=== PATIENT | male | born 1975 | race Caucasian/White ===

== ENCOUNTER → 2016-09-03 | Outpatient (CLI) | payer MEDICAID ==
[2016-09-03 14:27] LABS: ABSOLUTE EOSINOPHILS # (AUTO) 0.1 10^3/uL (0.0-0.6); ABSOLUTE LYMPHOCYTES (AUTO) 1.1 10^3/uL (0.5-4.7); ABSOLUTE MONOCYTES (AUTO) 0.5 10^3/uL (0.1-1.4); ABSOLUTE NEUT (AUTO) 1.9 10^3/uL (1.7-8.2); BASOPHILS % (AUTO) 0.4 % (0-2); EOSINOPHILS % (AUTO) 2.2 % (0-6); HEMATOCRIT 41.7 % (37.9-51.0); HEMOGLOBIN 13.4 g/dL (13.5-17.0); HGB HCT DIFFERENCE -1.5; LYMPHOCYTES % (AUTO) 29.8 % (13-45); MEAN CORPUSCULAR HGB CONC 32.2 g/dL (32.0-36.0); MEAN CORPUSCULAR VOLUME 90 fl (80-97); MONOCYTES % (AUTO) 15.4 % (3-13); RED BLOOD COUNT 4.63 10^6/uL (4.35-5.55); RED CELL DISTRIBUTION WIDTH 14.1 % (11.5-14.0); SEGMENTED NEUTROPHILS % (AUTO) 52.2 % (42-78); WHITE BLOOD COUNT 3.6 10^3/uL (4.0-10.5)
[2016-09-03 14:50] LABS: ALANINE AMINOTRANSFERASE 34 U/L (21-72); ALBUMIN 3.4 g/dL (3.5-5.0); ALKALINE PHOSPHATASE 55 U/L (38-126); ANION GAP 14 (5-19); ASPARTATE AMINO TRANSFERASE 31 U/L (17-59); BILIRUBIN,TOTAL 0.5 mg/dL (0.2-1.3); BLOOD UREA NITROGEN 22 mg/dL (7-20); CALCIUM 9.2 mg/dL (8.4-10.2); CARBON DIOXIDE 27 mmol/L (22-30); CHLORIDE 95 mmol/L (98-107); CREATININE RESULT 1.35 mg/dL (0.52-1.25); GLUCOSE 169 mg/dL (75-110); LIPASE 202.1 U/L (23-300); POTASSIUM 4.5 mmol/L (3.6-5.0); SODIUM 136.1 mmol/L (137-145); TOTAL PROTEIN 6.5 g/dL (6.3-8.2)
== END ==
LOC: RAD 13:29
PROVIDERS: ATTEND Physician Assistant
DX: R10.30 Lower abdominal pain, unspecified (principal)
CPT/HCPCS: 36415; 74022; 80053; 83690; 85025

== ENCOUNTER → 2016-12-03 | Outpatient (CLI) | payer MEDICAID | LOC: OD 12:27 | PROVIDERS: ATTEND Physician Assistant | DX: M25.572 Pain in left ankle and joints of left foot (principal) ==

== ENCOUNTER 2017-01-20 11:28 | Observation (INO) | payer MEDICAID ==
[~2017-01-20 11:28] MED LIST: METOCLOPRAMIDE HCL INJ/PF 10 MG/2 ML SDV ONE; NEOSTIGMINE METHYLSULFATE 10 MG/10 ML VIAL ONE; ONDANSETRON HCL INJ/PF 4 MG/2 ML SDV ONE; ROCURONIUM BROMIDE INJ 50 MG/5 ML VIAL IV ONE; SUCCINYLCHOLINE CHLORIDE INJ 200 MG/10 ML VIAL ONE
[2017-01-20] MEDS ORDERED: OXYCODONE-ACETAMINOPHEN 5-325 MG TABLET PO ONE (12:01)
[2017-01-20] MEDS ORDERED: PROMETHAZINE HCL 25 MG TABLET PO ONE (12:01)
--- NOTE | 2017-01-20 12:05 | ER Document Report ---
ED Medical Screen (RME) - General Chief Complaint: Abdominal Pain Stated Complaint: ABDOMINAL PAIN Time Seen by Provider: 01/20/17 11:55 Notes: Patient has a painful umbilical hernia. He has had this hernia for several years. He has had some bad coughing since yesterday and the hernia has enlarged and become much more painful about 1030 this morning. No vomiting or diarrhea. Patient has an incarcerated umbilical hernia. I attempted to push it back in while the patient is in RME sitting in a wheelchair, but I think he needs to be recumbent to get this to be successful. TRAVEL OUTSIDE OF THE [place] IN LAST 30 DAYS: No - Related Data Allergies/Adverse Reactions: niacin [Niacin] Allergy (Verified 12/01/15 15:56) Past Medical History - Past Medical History Cardiac Medical History: Reports: Hx Congestive Heart Failure, Hx Hypercholesterolemia, Hx Hypertension Neurological Medical History: Reports: Hx Migraine Endocrine Medical History: Reports: Hx Diabetes Mellitus Type 2 Renal/ Medical History: Denies: Hx Peritoneal Dialysis Musculoskeltal Medical History: Reports Hx Arthritis, Reports Hx Muscle Weakness , Reports Hx Musculoskeletal Deformity, Reports Hx Musculoskeletal Trauma Psychiatric Medical History: Reports: Hx Depression Traumatic Medical History: Reports: Hx Fractures Past Surgical History: Reports: Hx Orthopedic Surgery - Immunizations Hx Diphtheria, Pertussis, Tetanus Vaccination: No Physical Exam - Vital signs Vitals: Temp Pulse Resp BP Pulse Ox 98.2 F 121 H 22 H 163/96 H 94 01/20/17 11:39 01/20/17 11:39 01/20/17 11:39 01/20/17 11:39 01/20/17 11:39 Course - Vital Signs Vital signs: Temp Pulse Resp BP Pulse Ox 98.2 F 121 H 22 H 163/96 H 94 01/20/17 11:39 01/20/17 11:39 01/20/17 11:39 01/20/17 11:39 01/20/17 11:39
[2017-01-20] MEDS ORDERED: MORPHINE SULFATE 10 MG/ML INJ IV ONE ×2 (12:30→15:15)
[2017-01-20] MEDS ORDERED: NORMAL SALINE 1000 ML 1,000 ML IV PRN ×2 (12:30→15:34)
--- NOTE | 2017-01-20 12:30 | ER Document Report ---
ED GI/ - General Chief Complaint: Abdominal Pain Stated Complaint: ABDOMINAL PAIN Time Seen by Provider: 01/20/17 11:55 Mode of Arrival: Ambulatory Information source: Patient TRAVEL OUTSIDE OF THE [place] IN LAST 30 DAYS: No - HPI Patient complains to provider of: Abdominal pain Onset: This morning Timing/Duration: Sudden Quality of pain: Pressure, Sharp Severity at maximum: Severe Severity in ED: Severe Pain Level: 4 Location: Other - umbilical Associated symptoms: Nausea Exacerbated by: Coughing Relieved by: Denies Similar symptoms previously: Yes Recently seen / treated by doctor: No Notes: 01/20/17 12:28 Patient is a 41-year-old male with a history of diabetes, hypertension and high cholesterol, who has a history of an umbilical hernia, this morning around 10: 30 AM he had a "coughing fit", he states he was holding his abdomen at the time because he knows of his hernia and felt the size of the hernia increase, he also has increased pain with nausea as well, patient's last meal was 745 this morning - Related Data Allergies/Adverse Reactions: losartan Allergy (Verified 01/20/17 14:12) niacin [Niacin] Allergy (Verified 12/01/15 15:56) Past Medical History - General Information source: Patient - Social History Smoking Status: Never Smoker Family History: Reviewed & Not Pertinent Patient has suicidal ideation: No Patient has homicidal ideation: No - Past Medical History Cardiac Medical History: Reports: Hx Congestive Heart Failure, Hx Hypercholesterolemia, Hx Hypertension Neurological Medical History: Reports: Hx Migraine Endocrine Medical History: Reports: Hx Diabetes Mellitus Type 2 Renal/ Medical History: Denies: Hx Peritoneal Dialysis Musculoskeltal Medical History: Reports Hx Arthritis, Reports Hx Muscle Weakness , Reports Hx Musculoskeletal Deformity, Reports Hx Musculoskeletal Trauma Psychiatric Medical History: Reports: Hx Depression Traumatic Medical History: Reports: Hx Fractures Past Surgical History: Reports: Hx Orthopedic Surgery - Immunizations Hx Diphtheria, Pertussis, Tetanus Vaccination: No Hx Pneumococcal Vaccination: 06/18/15 Review of Systems - Review of Systems Constitutional: No symptoms reported EENT: No symptoms reported Cardiovascular: No symptoms reported Respiratory: No symptoms reported Gastrointestinal: See HPI Genitourinary: No symptoms reported Male Genitourinary: No symptoms reported Musculoskeletal: No symptoms reported Skin: No symptoms reported Hematologic/Lymphatic: No symptoms reported Neurological/Psychological: No symptoms reported -: Yes All other systems reviewed and negative Physical Exam - Vital signs Vitals: Temp Pulse Resp BP Pulse Ox 98.2 F 121 H 22 H 163/96 H 94 01/20/17 11:39 01/20/17 11:39 01/20/17 11:39 01/20/17 11:39 01/20/17 11:39 Interpretation: Hypertensive, Tachycardic, Tachypneic - General General appearance: Appears well, Alert - HEENT Head: Normocephalic, Atraumatic Eyes: Normal Pupils: PERRL - Respiratory Respiratory status: No respiratory distress Chest status: Nontender Breath sounds: Normal Chest palpation: Normal - Cardiovascular Rhythm: Regular Heart sounds: Normal auscultation Murmur: No - Abdominal Inspection: Normal, Obese Bowel sounds: Normal Tenderness: Tender - tender to palpate near the umbilicus with firm swollen area consistent with incarcerated umbilical hernia Organomegaly: No organomegaly - Back Back: Normal, Nontender - Extremities General upper extremity: Normal inspection, Nontender, Normal color, Normal ROM , Normal temperature General lower extremity: Normal inspection, Nontender, Normal color, Normal ROM , Normal temperature, Normal weight bearing. No: Darryl's sign - Neurological Neuro grossly intact: Yes Cognition: Normal Orientation: AAOx4 Jaime Coma Scale Eye Opening: Spontaneous [place] Coma Scale Verbal: Oriented [place] Coma Scale Motor: Obeys Commands [place] Coma Scale Total: 15 Speech: Normal Motor strength normal: LUE, RUE, LLE, RLE Sensory: Normal - Psychological Associated symptoms: Normal affect, Normal mood - Skin Skin Temperature: Warm Skin Moisture: Dry Skin Color: Normal Course - Re-evaluation Re-evalutation: 01/20/17 12:30 a call was placed to the on-call surgeon, Dr. Holloway who is currently in the OR, information was given to the OR nurse regarding patient 01/20/17 15:35 Patient was seen and evaluated by Dr. Holloway who will admit for further evaluation and treatment - Vital Signs Vital signs: Temp Pulse Resp BP Pulse Ox 98.2 F 121 H 22 H 163/96 H 94 01/20/17 11:39 01/20/17 11:39 01/20/17 11:39 01/20/17 11:39 01/20/17 11:39 - Laboratory Result Diagrams: 01/20/17 12:57 01/20/17 14:14 Laboratory results interpreted by me: 01/20/17 01/20/17 12:57 14:14 RDW 14.5 H Glucose 111 H - Diagnostic Test Radiology reviewed: Image reviewed, Reports reviewed - EKG Interpretation by Me EKG shows normal: Sinus rhythm Rate: Tachycardia - Consults Dr Holloway Time consulted: 12:50 Reason for consultation: 01/20/17 12:50 Incarcerated umbilical hernia Consulted provider: will come to ER Discharge - Discharge Clinical Impression: Incarcerated umbilical hernia Condition: Stable Disposition: ADMITTED INPATIENT Admitting Provider: Surgicalist Unit Admitted: Surgical Floor Referrals: LELIA OSORIO PA [Primary Care Provider] - Follow up as needed
[2017-01-20 13:06] LABS: ABSOLUTE BASOPHILS # (AUTO) 0.1 10^3/uL (0.0-0.2); ABSOLUTE EOSINOPHILS # (AUTO) 0.2 10^3/uL (0.0-0.6); ABSOLUTE LYMPHOCYTES (AUTO) 1.6 10^3/uL (0.5-4.7); ABSOLUTE MONOCYTES (AUTO) 0.4 10^3/uL (0.1-1.4); BASOPHILS % (AUTO) 1.3 % (0-2); EOSINOPHILS % (AUTO) 4.5 % (0-6); HEMATOCRIT 40.8 % (37.9-51.0); HEMOGLOBIN 13.7 g/dL (13.5-17.0); HGB HCT DIFFERENCE 0.3; LYMPHOCYTES % (AUTO) 29.9 % (13-45); MEAN CORPUSCULAR HEMOGLOBIN 30.1 pg (27.0-33.4); MEAN CORPUSCULAR HGB CONC 33.5 g/dL (32.0-36.0); MEAN CORPUSCULAR VOLUME 90 fl (80-97); MONOCYTES % (AUTO) 7.2 % (3-13); RED BLOOD COUNT 4.54 10^6/uL (4.35-5.55); RED CELL DISTRIBUTION WIDTH 14.5 % (11.5-14.0); SEGMENTED NEUTROPHILS % (AUTO) 57.1 % (42-78); WHITE BLOOD COUNT 5.2 10^3/uL (4.0-10.5)
[2017-01-20] MEDS ORDERED: DIPHENHYDRAMINE HCL 50 MG/ML VIAL IV ONE (13:11)
[2017-01-20 13:13] LABS: PROTHROMBIN TIME 11.8 SEC (11.4-15.4)
[2017-01-20 13:14] LABS: PARTIAL THROMBOPLASTIN TIME 25.2 SEC (23.5-35.8)
--- NOTE | 2017-01-20 13:34 | RADIOLOGY REPORT (SQ) ---
EXAM DESCRIPTION: CHEST PA/LAT COMPLETED DATE/TIME: 01/20/2017 1:26 pm REASON FOR STUDY: cough COMPARISON: 09/30/2015 EXAM PARAMETERS: NUMBER OF VIEWS: two views TECHNIQUE: Digital Frontal and Lateral radiographic views of the chest acquired. RADIATION DOSE: NA LIMITATIONS: none FINDINGS: LUNGS AND PLEURA: No opacities, masses or pneumothorax. No pleural effusion. MEDIASTINUM AND HILAR STRUCTURES: No masses or contour abnormalities. HEART AND VASCULAR STRUCTURES: Heart normal size. No evidence for failure. BONES: No acute findings. HARDWARE: None in the chest. OTHER: No other significant finding. IMPRESSION: NO SIGNIFICANT RADIOGRAPHIC FINDING IN THE CHEST. TECHNICAL DOCUMENTATION: JOB ID: [id number] [employer]- All Rights Reserved
--- NOTE | 2017-01-20 14:31 | EKG REPORT ---
SEVERITY:- OTHERWISE NORMAL ECG - SINUS TACHYCARDIA BORDERLINE LEFT AXIS DEVIATION : Confirmed by: Misty Mcintosh 20-Jan-2017 14:30:15
[2017-01-20 14:56] LABS: ALANINE AMINOTRANSFERASE 46 U/L (21-72); ALBUMIN 3.8 g/dL (3.5-5.0); ALKALINE PHOSPHATASE 113 U/L (38-126); ANION GAP 12 (5-19); ASPARTATE AMINO TRANSFERASE 43 U/L (17-59); BILIRUBIN,DIRECT 0.3 mg/dL (0.0-0.4); BILIRUBIN,TOTAL 0.5 mg/dL (0.2-1.3); BLOOD UREA NITROGEN 11 mg/dL (7-20); CALCIUM 9.3 mg/dL (8.4-10.2); CARBON DIOXIDE 23 mmol/L (22-30); CHLORIDE 104 mmol/L (98-107); CREATININE RESULT 0.87 mg/dL (0.52-1.25); GLUCOSE 111 mg/dL (75-110); POTASSIUM 4.2 mmol/L (3.6-5.0); SODIUM 139.4 mmol/L (137-145)
--- NOTE | 2017-01-20 15:55 | PDOC H&P ---
History of Present Illness Admission Date/PCP: TARA GUZMAN History of Present Illness: ANYI RANDALL JR is a 41 year old male Patient presents emergency department complaining of acute onset abdominal epigastric and chest pain after paroxysms of coughing. The patient was brought by [facility] where he was evaluated and found to have evidence of an incarcerated umbilical hernia. He has a long history of umbilical hernia. Attempts were made to reduce the hernia but were unsuccessful. Patient has not sought surgical care for the hernia repair. Patient was evaluated by emergency department who subsequently consulted surgery for further evaluation. Additional workup for to like condition was unremarkable. Patient was evaluated in the emergency department 2 occasions by general surgery and continue to have abdominal pain, with small incarceration of omental fat in the umbilicus. He was offered operative repair. Past Medical History Cardiac Medical History: Reports: Congestive Heart Failure, Hyperlipidema, Hypertension Neurological Medical History: Reports: Migraine Endocrine Medical History: Reports: Diabetes Mellitus Type 2 Musculoskeltal Medical History: Reports: Arthritis Psychiatric Medical History: Reports: Depression Past Surgical History Past Surgical History: Reports: Orthopedic Surgery Social History Smoking Status: Never Smoker Frequency of Alcohol Use: None Hx Recreational Drug Use: No Hx Prescription Drug Abuse: No Family History Family History: Reviewed & Not Pertinent Parental Family History Reviewed: Yes Children Family History Reviewed: Yes Sibling(s) Family History Reviewed.: Yes Medication/Allergy Home Medications: Gabapentin [Neurontin 300 mg Capsule] 300 mg PO Q8 04/04/15 Gemfibrozil [Lopid] 600 mg PO BID 04/04/15 Lidocaine [Lidoderm 5% (700 mg) Transdermal Patch] 1 patch TP DAILY PRN Metformin HCl [Glucophage] 1,000 mg PO BID 04/04/15 Morphine Sulfate [Morphine Sulfate ER] 60 mg PO BID 04/04/15 Venlafaxine HCl [Effexor Xr] 300 mg PO DAILY 04/04/15 Atorvastatin Calcium [Lipitor 20 mg Tablet] 20 mg PO DAILY 09/14/15 Furosemide [Lasix 20 mg Tablet] 20 mg PO DAILY 09/14/15 Hydroxyzine Pamoate [Vistaril 25 mg Capsule] 1 cap PO Q8 PRN 09/14/15 Tizanidine HCl [Zanaflex] 1 - 2 tab PO TID PRN 09/14/15 Diltiazem HCl [Cartia Xt] 1 cap PO DAILY 09/30/15 Insulin Regular, Human [Humulin R (Hi-Dose) Insulin 500 unit/mL] 20 units SQ TID 09/30/15 Linaclotide [Linzess 145 Mcg Capsule] 1 cap PO DAILY 09/30/15 Walland-3 Fatty Acids/Fish Oil [Walland 3 Fish Oil Softgel] 2 each PO BID 09/30/15 Oxycodone HCl/Acetaminophen [Oxycodone-Acetaminophen 10-325] 1 tab PO Q6H PRN Omeprazole [Prilosec] 20 mg PO DAILY #30 capsule. 10/03/15 Trazodone HCl [Desyrel 50 mg Tablet] 100 mg PO QHS tablet 10/03/15 Allergies/Adverse Reactions: losartan Allergy (Verified 01/20/17 14:12) niacin [Niacin] Allergy (Verified 12/01/15 15:56) Review of Systems Constitutional: PRESENT: as per HPI Eyes: PRESENT: as per HPI Ears: PRESENT: as per HPI Nose, Mouth, and Throat: PRESENT: as per HPI Breasts: PRESENT: as per HPI Cardiovascular: PRESENT: chest pain Respiratory: PRESENT: cough Gastrointestinal: PRESENT: abdominal pain Neurological: ABSENT: abnormal gait, abnormal speech, confusion, dizziness, focal weakness, syncope Psychiatric: ABSENT: anxiety, depression, homidical ideation, suicidal ideation Endocrine: ABSENT: cold intolerance, heat intolerance, polydipsia, polyuria Hematologic/Lymphatic: ABSENT: easy bleeding, easy bruising Physical Exam Vital Signs: Temp Pulse Resp BP Pulse Ox 98.2 F 121 H 22 H 163/96 H 94 01/20/17 11:39 01/20/17 11:39 01/20/17 11:39 01/20/17 11:39 01/20/17 11:39 Intake & Output 01/19/17 01/20/17 01/21/17 06:59 06:59 06:59 Weight 167.2 kg General appearance: PRESENT: no acute distress Head exam: PRESENT: normocephalic Eye exam: PRESENT: EOMI Ear exam: PRESENT: normal external ear exam Neck exam: PRESENT: full ROM Respiratory exam: PRESENT: crackles Cardiovascular exam: PRESENT: RRR Pulses: PRESENT: normal carotid pulses, normal radial pulses GI/Abdominal exam: PRESENT: diminished bowel sounds, other - Reducible incarcerated umbilical hernia. Abdominal wall minimally tender. Extremities exam: PRESENT: full ROM Musculoskeletal exam: PRESENT: ambulatory Neurological exam: PRESENT: alert, awake, oriented to person, oriented to place Psychiatric exam: PRESENT: appropriate affect Results Laboratory Results: 01/20/17 12:57 01/20/17 14:14 01/20/17 01/20/17 01/20/17 12:57 12:57 14:14 WBC 5.2 RBC 4.54 Hgb 13.7 Hct 40.8 MCV 90 MCH 30.1 MCHC 33.5 RDW 14.5 H Plt Count 183 Seg Neutrophils % 57.1 Lymphocytes % 29.9 Monocytes % 7.2 Eosinophils % 4.5 Basophils % 1.3 Absolute Neutrophils 3.0 Absolute Lymphocytes 1.6 Absolute Monocytes 0.4 Absolute Eosinophils 0.2 Absolute Basophils 0.1 Sodium Cancelled 139.4 Potassium Cancelled 4.2 Chloride Cancelled 104 Carbon Dioxide Cancelled 23 Anion Gap Cancelled 12 BUN Cancelled 11 Creatinine Cancelled 0.87 Est GFR ( Amer) Cancelled > 60 Est GFR (Non-Af Amer) Cancelled > 60 Glucose Cancelled 111 H Calcium Cancelled 9.3 Total Bilirubin Cancelled 0.5 AST Cancelled 43 ALT Cancelled 46 Alkaline Phosphatase Cancelled 113 Total Protein Cancelled 7.0 Albumin Cancelled 3.8 Impressions: Chest X-Ray 01/20/17 13:07 IMPRESSION: NO SIGNIFICANT RADIOGRAPHIC FINDING IN THE CHEST. Assessment & Plan - Diagnosis (1) Incarcerated umbilical hernia Is this a current diagnosis for this admission?: YesPlan: Patient has a chronic umbilical hernia, now incarcerated with pain. Deserves operative repair We have discussed surgical strategies. I have offered affect possible open ventral wall hernia repair with mesh, also more hospital, 1 hour. I reviewed wrist benefits alternatives including bleeding, infection, need for additional surgery. Expresses understanding agrees to proceed. (2) Obesity Qualifiers: Obesity severity: unspecified obesity severity Is this a current diagnosis for this admission?: Yes (3) Hyperlipidemia Qualifiers: Hyperlipidemia type: unspecified Qualified Code(s): E78.5 - Hyperlipidemia, unspecified Is this a current diagnosis for this admission?: Yes (4) Sleep apnea Qualifiers: Sleep apnea type: unspecified type Qualified Code(s): G47.30 - Sleep apnea, unspecified Is this a current diagnosis for this admission?: Yes (5) Diabetes mellitus type 1 Qualifiers: Diabetes mellitus complication status: without complication Qualified Code(s): E10.9 - Type 1 diabetes mellitus without complications (6) Back pain Is this a current diagnosis for this admission?: YesPlan: Chronic; patient disabled as a result. - Time Time Spent: 30 to 50 Minutes Medications reviewed and adjusted accordingly: Yes Anticipated discharge: Home - Inpatient Certification Based on my medical assessment, after consideration of the patient's comorbidities, presenting symptoms, or acuity I expect that the services needed warrant INPATIENT care.: Yes I certify that my determination is in accordance with my understanding of Medicare's requirements for reasonable and necessary INPATIENT services [42 CFR 412.3e].: Yes Medical Necessity: Need for Pain Control, Need for IV Antibiotics, Need for Surgery
[2017-01-20] MEDS ORDERED: CEFAZOLIN INJ 1 GM VIAL ONE (16:04)
[2017-01-20] MEDS ORDERED: BUPIVACAINE HCL 0.25 % INJ/PF (2.5 MG/1 ML) 30 ML VIAL ONE (16:10)
[2017-01-20] MEDS ORDERED: PROPOFOL INJ 200 MG/20 ML VIAL IV ONE (16:30)
[2017-01-20] MEDS ORDERED: HYDROMORPHONE HCL INJ/PF 2 MG/ML AMPULE ONE (16:30)
[2017-01-20] MEDS ORDERED: MIDAZOLAM 2 MG/2 ML INJ ONE (16:30)
[2017-01-20] MEDS ORDERED: ACETAMINOPHEN 100 ML IV ONE (16:31)
[2017-01-20] MEDS ORDERED: IBUPROFEN INJ 800 MG/8 ML VIAL IV ONE (16:31)
[2017-01-20] MEDS ORDERED: PROMETHAZINE HCL INJ 25 MG/1 ML VIAL IV PRN (17:26)
[2017-01-20] MEDS ORDERED: FENTANYL CITRATE INJ/PF 100 MCG/2 ML AMPUL IV PRN ×3 (17:26)
[2017-01-20] MEDS ORDERED: LABETALOL HCL INJ 20 MG/4 ML DISP.SYRIN IV PRN (17:26)
[2017-01-20] MEDS ORDERED: OXYCODONE-ACETAMINOPHEN 5-325 MG TABLET PO PRN ×2 (17:26)
[2017-01-20] MEDS ORDERED: MEPERIDINE HCL/PF INJ 25 MG/1 ML DISP.SYRIN IV PRN (17:26)
[2017-01-20] MEDS ORDERED: MORPHINE SULFATE 10 MG/ML INJ IV PRN ×2 (17:26→18:04)
[2017-01-20] MEDS ORDERED: DIPHENHYDRAMINE HCL 50 MG/ML VIAL IV PRN (17:26)
[2017-01-20] MEDS ORDERED: ONDANSETRON HCL INJ/PF 4 MG/2 ML SDV IV PRN ×2 (17:26→18:04)
[2017-01-20] MEDS ORDERED: DOCUSATE SODIUM 100 MG CAPSULE PO PRN (18:05)
--- NOTE | 2017-01-20 18:11 | Operative Report ---
Operative Report DATE OF SURGERY: 01/20/17 PREOPERATIVE DIAGNOSIS: Incarcerated umbilical hernia with omentum POSTOPERATIVE DIAGNOSIS: Same OPERATION: 1. Laparoscopic reduction of incarcerated umbilical hernia. 2. Laparoscopic herniorrhaphy with primary defect closure and reinforcement with 9 cm polypropylene mesh SURGEON: MADISON GOSS ANESTHESIA: GA TISSUE REMOVED OR ALTERED: None COMPLICATIONS: None ESTIMATED BLOOD LOSS: Scant INTRAOPERATIVE FINDINGS: See below PROCEDURE: Patient was taken to the preop holding area to the main operating room where general anesthesia was induced. Arms were abducted and abdomen was exposed, prepped draped sterile fashion. Surgical plan surgical timeout conducted. Findings are significant for a small incarcerated umbilical hernia. Skin was anesthetized for left upper quadrant left lower quadrant and right mid field ports. A small knife wound was made in the left upper quadrant and a Veress needle inserted the peritoneal cavity and pneumoperitoneum was established. Veress needle was removed, 5 mm ports inserted and a 5mm flexible scope was inserted. Under direct visualization 2 additional ports were placed one in the left lower quadrant and one in the right mid field. The left upper quadrant port did elizondo the omentum and there was a minimal amount of bleeding which stopped spontaneously. Visualization of the peritoneal cavity otherwise revealed no evidence of visceral injury Findings are significant for an incarcerated umbilical hernia with omentum. The omentum was brought out of incarceration using gentle traction. Portions of incarcerated omentum were debrided small umbilical hernia. A lot of the omentum was actually trapped in the retroperitoneal layer. All of this was debrided and left into the peritoneal cavity. The fascial defect at the level of the umbilicus was less than 2 cm in diameter. We closed primarily with a single [id number] #1 PDS suture using the disposable suture passer. We then brought onto the field a 9 cm Covidien parietex mesh, affixed it with sutures, #1 PDS at the 12, 3, 6, 9, and 12:00 positions. The mesh was oriented, moistened, rolled and brought to the intra-abdominal wall at the right mid port site incision. The mesh was successfully unrolled, and brought up to the anterior abdominal wall the respective positions at the 12, 3, 6 and 9:00 positions with the suture tacker. Knots were secured. The mesh was further secured to the anterior abdominal wall using the disposable suture tack stapler. Conclusion photos are taken. We reinspected the viscera as well as the omentum which we did reduced from the incarcerated hernia and there is no evidence of ongoing bleeding I felt the operation was complete. Sponge and counts are correct. All ports removed under direct visualization pneumoperitoneum evacuated was closed with 3- 0 Vicryl benzoin Steri-Strips. Postop procedure well, extubated and taken to recovery in stable condition pathology
[2017-01-20] MEDS: OXYCODONE-ACETAMINOPHEN 5-325 MG TABLET PO PRN (20:25)
[2017-01-21] MEDS ORDERED: HYDROXYZINE PAMOATE 25 MG CAPSULE PO PRN (00:57)
[2017-01-21] MEDS: OXYCODONE-ACETAMINOPHEN 5-325 MG TABLET PO PRN ×4 (00:58→12:22)
[2017-01-21] MEDS ORDERED: TIZANIDINE HCL 4 MG TABLET PO PRN (01:00)
[2017-01-21] MEDS ORDERED: INSULIN REG, HUMAN 100 UNIT/ML 3 ML VIAL (PYX) SUBCUT ONE ×2 (01:45→02:15)
[2017-01-21] MEDS ORDERED: GABAPENTIN 300 MG CAPSULE PO SCH (06:00)
[2017-01-21] MEDS ORDERED: LANSOPRAZOLE 15 MG TAB.RAP.DR PO SCH (06:00)
[2017-01-21] MEDS ORDERED: INSULIN REG, HUMAN 100 UNIT/ML 3 ML VIAL (PYX) SUBCUT SCH ×2 (08:00)
[2017-01-21] MEDS ORDERED: METFORMIN HCL 500 MG TABLET PO SCH (08:00)
[2017-01-21 08:53] VITALS: BP 169/94
[2017-01-21] MEDS ORDERED: OMEGA-3 ACID ETHYL ESTERS 1 GM CAPSULE PO SCH (10:00)
--- NOTE | 2017-01-21 12:02 | PDOC DISCHARGE SUMMARY ---
Discharge Summary (SDC) - Discharge Final Diagnosis: Status post laparoscopic repair of incarcerated umbilical hernia Date of Surgery: 01/20/17 Discharge Date: 01/21/17 Prescriptions: Oxycodone HCl/Acetaminophen [Percocet 5-325 mg Tablet] 1 tab PO Q4HP PRN #20 tablet PRN Reason: Referrals: MADISON GOSS MD [ACTIVE STAFF] - 01/28/17 2:15 pm LELIA OSORIO PA [Primary Care Provider] - 01/27/17 11:30 am (If you have any problems or concerns please contact office before the weekend) Respiratory Treatments at Home: Deep Breathing/Coughing Discharge Activity: Activity As Tolerated, Balance Activity w/Rest, No Driving, No Lifting Over 10 Pounds, No Lifting/Push/Pulling, Slowly Increase Activity, No tub bath, Walk Frequently, Weigh Daily Home Care Assistance: None Needed, Provided by Family Report the Following to Your Physician Immediately: Shortness of Breath, Increase in Pain, Fever over 101 Degrees, Unusual Bleeding, Redness, Swelling, Warmth, Drainage-Yellow, Drainage-Perez, Drainage-Green, Drainage-Foul Smelling, IV Site Infection Signs
[2017-01-21] MEDS ORDERED: INSULIN LISPRO 100 UNIT/ML 3 ML VIAL SUBCUT ONE (12:15)
--- NOTE | 2017-01-21 17:13 | DISCHARGE SUMMARY E ---
Discharge Summary NAME: ANYI RANDALL : 1975 AGE: 41Y ADMITTED: 01/20/2017 DISCHARGED: 01/21/2017 DISCHARGE DIAGNOSIS: STATUS POST LAPAROSCOPIC REPAIR OF AN INCARCERATED UMBILICAL HERNIA. This 41-year-old male presented to the emergency room with an incarcerated umbilical hernia that had been incarcerated for the last several hours. The patient complained of pain at the umbilical hernia site. The patient was seen by Dr. Holloway in the emergency room and taken directly to the operating room, where he underwent uneventful laparoscopic repair of his incarcerated umbilical hernia. The patient's postop course was uneventful. He was started on a full-liquid diet and then advanced accordingly today to a regular diet. The patient's incisions are clean, dry and intact and he is tolerating his meals well. The patient is now discharged home and is to return to see Dr. Holloway in 1 week. DICTATING PHYSICIAN: DI DUONG M.D. [id number] PHY#: [id number] ID: [id number] JOB#: [id number] ACCT: [id number] cc:Esther ANTON M.D. >
[2017-01-21] MEDS ORDERED: TRAZODONE HCL 50 MG TABLET PO SCH (22:00)
[2017-01-21] MEDS ORDERED: ATORVASTATIN CALCIUM 20 MG TABLET PO SCH (22:00)
== END 2017-01-21 12:50 | disposition home or self-care (01) ==
LOC: ER 11:28 → INTOOBSV 15:52 → EH 15:52 → 4N 20:10
PROC: 0WUF4JZ Supplement Abdominal Wall with Synthetic Substitute, Percutaneous Endoscopic Approach (ICD-10-PCS; principal; 2017-01-20 18:15)
DX: K42.0 Umbilical hernia with obstruction, without gangrene (principal); E66.9 Obesity, unspecified; E10.9 Type 1 diabetes mellitus without complications; E78.5 Hyperlipidemia, unspecified; G47.30 Sleep apnea, unspecified; G89.29 Other chronic pain; M54.9 Dorsalgia, unspecified; R00.0 Tachycardia, unspecified; R07.9 Chest pain, unspecified; R05 Cough; R06.82 Tachypnea, not elsewhere classified; I11.0 Hypertensive heart disease with heart failure; I50.9 Heart failure, unspecified; M19.90 Unspecified osteoarthritis, unspecified site; Z79.4 Long term (current) use of insulin; Z79.899 Other long term (current) drug therapy; Z68.43 Body mass index [BMI] 50.0-59.9, adult
CPT/HCPCS: 49653; 93005; 99285; 96361; 96374; 96375; 36415; 82962 ×2; 85025; 85610; 85730; 80053; 71020; 93010; C1781; J2250; J0690; J3490 ×5; J1200; J1815 ×2; J2765; J2270; J1170; J0330; J2405; S0020; J7030; J2704; J0131; J1741; 752

== ENCOUNTER 2017-02-26 20:56 | Emergency (ER) | payer MEDICAID ==
[2017-02-26] MEDS ORDERED: NORMAL SALINE 1000 ML 1,000 ML IV ONE (21:09)
--- NOTE | 2017-02-26 21:27 | RADIOLOGY REPORT (SQ) ---
EXAM DESCRIPTION: CHEST SINGLE VIEW COMPLETED DATE/TIME: 02/26/2017 9:19 pm REASON FOR STUDY: chest pain COMPARISON: 01/20/2017 EXAM PARAMETERS: NUMBER OF VIEWS: One view. TECHNIQUE: Single frontal radiographic view of the chest acquired. RADIATION DOSE: NA LIMITATIONS: None. FINDINGS: LUNGS AND PLEURA: No opacities, masses or pneumothorax. No pleural effusion. MEDIASTINUM AND HILAR STRUCTURES: No masses. Contour normal. HEART AND VASCULAR STRUCTURES: Heart normal in size. Normal vasculature. BONES: No acute findings. HARDWARE: None in the chest. OTHER: No other significant finding. IMPRESSION: NO ACUTE RADIOGRAPHIC FINDING IN THE CHEST. TECHNICAL DOCUMENTATION: JOB ID: [id number]
[2017-02-26] MEDS ORDERED: HYDROCODONE/ACETAMINOPHEN 5-325 MG TABLET PO ONE (21:30)
[2017-02-26 21:41] LABS: ABSOLUTE EOSINOPHILS # (AUTO) 0.2 10^3/uL (0.0-0.6); ABSOLUTE LYMPHOCYTES (AUTO) 2.5 10^3/uL (0.5-4.7); ABSOLUTE MONOCYTES (AUTO) 0.5 10^3/uL (0.1-1.4); BASOPHILS % (AUTO) 0.6 % (0-2); EOSINOPHILS % (AUTO) 3.1 % (0-6); HEMATOCRIT 42.2 % (37.9-51.0); HEMOGLOBIN 13.8 g/dL (13.5-17.0); HGB HCT DIFFERENCE -0.8; LYMPHOCYTES % (AUTO) 34.6 % (13-45); MEAN CORPUSCULAR HEMOGLOBIN 29.9 pg (27.0-33.4); MEAN CORPUSCULAR HGB CONC 32.6 g/dL (32.0-36.0); MEAN CORPUSCULAR VOLUME 92 fl (80-97); MONOCYTES % (AUTO) 6.9 % (3-13); RED CELL DISTRIBUTION WIDTH 16.1 % (11.5-14.0); SEGMENTED NEUTROPHILS % (AUTO) 54.8 % (42-78); WHITE BLOOD COUNT 7.4 10^3/uL (4.0-10.5)
[2017-02-26 21:53] LABS: ALANINE AMINOTRANSFERASE 43 U/L (21-72); ALBUMIN 4.5 g/dL (3.5-5.0); ALKALINE PHOSPHATASE 89 U/L (38-126); ASPARTATE AMINO TRANSFERASE 55 U/L (17-59); BILIRUBIN,DIRECT 0.4 mg/dL (0.0-0.4); BILIRUBIN,TOTAL 0.6 mg/dL (0.2-1.3); BLOOD UREA NITROGEN 22 mg/dL (7-20); CALCIUM 9.7 mg/dL (8.4-10.2); CARBON DIOXIDE 22 mmol/L (22-30); CREATINE KINASE 834 U/L (55-170); CREATININE RESULT 1.85 mg/dL (0.52-1.25); GLUCOSE 290 mg/dL (75-110); POTASSIUM 3.8 mmol/L (3.6-5.0); TOTAL PROTEIN 7.9 g/dL (6.3-8.2)
--- NOTE | 2017-02-26 21:55 | ER Document Report ---
ED Cardiac - General Chief Complaint: Chest Pain Stated Complaint: CHEST PAIN Time Seen by Provider: 02/26/17 21:08 Notes: The patient is a 41-year-old male, PMHx HTN, DM, chronic back pain, presents with left lower chest pain and shortness of breath that started as he was gardening earlier today. He described the pain as sharp and throbbing. He received 3 sublingual nitros, 324 mg aspirin and half a liter normal saline by EMS prior to arrival. Patient said that his pain has improved. He denies syncope, back pain, numbness, tingling, nausea, vomiting, leg swelling, fevers, cough or rash. TRAVEL OUTSIDE OF THE [place] IN LAST 30 DAYS: No - Related Data Allergies/Adverse Reactions: losartan Allergy (Verified 01/20/17 14:12) niacin [Niacin] Allergy (Verified 12/01/15 15:56) Past Medical History - General Information source: Patient - Social History Smoking Status: Unknown if Ever Smoked Family History: Reviewed & Not Pertinent - Past Medical History Cardiac Medical History: Reports: Hx Hypercholesterolemia, Hx Hypertension Neurological Medical History: Reports: Hx Migraine Endocrine Medical History: Reports: Hx Diabetes Mellitus Type 2 Renal/ Medical History: Denies: Hx Peritoneal Dialysis Musculoskeltal Medical History: Reports Hx Arthritis, Reports Hx Muscle Weakness , Reports Hx Musculoskeletal Deformity, Reports Hx Musculoskeletal Trauma Psychiatric Medical History: Reports: Hx Depression Traumatic Medical History: Reports: Hx Fractures Past Surgical History: Reports: Hx Abdominal Surgery - hernia, Hx Orthopedic Surgery - Immunizations Hx Diphtheria, Pertussis, Tetanus Vaccination: No Hx Pneumococcal Vaccination: 06/18/15 Review of Systems - Review of Systems Notes: REVIEW OF SYSTEMS: CONSTITUTIONAL: -fevers, -chills EENT: -eye pain, -difficulty swallowing, -nasal congestion CARDIOVASCULAR: +chest pain, -syncope. RESPIRATORY: -cough, +SOB GASTROINTESTINAL: -abdominal pain, - nausea, -vomiting, -diarrhea GENITOURINARY: -dysuria, -hematuria MUSCULOSKELETAL: -back pain, -neck pain SKIN: -rash or skin lesions. HEMATOLOGIC: -easy bruising or bleeding. LYMPHATIC: -swollen, enlarged glands. NEUROLOGICAL: -altered mental status or loss of consciousness, -headache, - neurologic symptoms PSYCHIATRIC: -anxiety, -depression. ALL OTHER SYSTEMS REVIEWED AND NEGATIVE. Physical Exam - Vital signs Vitals: Resp Pulse Ox 25 H 96 02/26/17 20:59 02/26/17 20:59 - Notes Notes: PHYSICAL EXAMINATION: GENERAL: Diaphoretic. Mild distress. HEAD: Atraumatic, normocephalic. EYES: Pupils equal round and reactive to light, extraocular movements intact, sclera anicteric, conjunctiva are normal. ENT: nares patent, oropharynx clear without exudates. Moist mucous membranes. NECK: Normal range of motion, supple without lymphadenopathy LUNGS: Breath sounds clear to auscultation bilaterally and equal. No wheezes rales or rhonchi. HEART: Tachycardic, Regular rhythm without murmurs ABDOMEN: Soft, nontender, normoactive bowel sounds. No guarding, no rebound. No masses appreciated. EXTREMITIES: Normal range of motion, no pitting or edema. No cyanosis. NEUROLOGICAL: Cranial nerves grossly intact. Normal speech, normal gait. Normal sensory and motor exams. PSYCH: Normal mood, normal affect. SKIN: Warm, Diaphoretic, normal turgor, no rashes or lesions noted. Course - Re-evaluation Re-evalutation: Patient appears well. 2 sets of troponins and 2 repeat EKGs do not show any evidence of active ischemia. HEART score 2. CTA performed due to high risk for PE, which was negative for any PE. Patient had some PATRICIA, which is most likely from dehydration from not drinking and working outside all day. Patient instructed to continue to drink plenty of fluids. He must follow-up with his primary care physician for further evaluation and treatment. - Vital Signs Vital signs: Temp Pulse Resp BP Pulse Ox 97.9 F 128 H 13 106/72 99 02/26/17 21:12 02/26/17 21:12 02/27/17 01:31 02/27/17 01:31 02/27/17 01:31 - Laboratory Result Diagrams: 02/26/17 21:25 02/26/17 21:25 Laboratory results interpreted by me: 02/26/17 02/26/17 21:25 21:25 RDW 16.1 H BUN 22 H Creatinine 1.85 H Est GFR ( Amer) 49 L Est GFR (Non-Af Amer) 41 L Glucose 290 H Creatine Kinase 834 H - Diagnostic Test Radiology reviewed: Image reviewed, Reports reviewed Radiology results interpreted by me: CTA Chest: No PE - EKG Interpretation by Me EKG shows normal: Sinus rhythm, [place], Intervals, QRS Complexes, ST-T Waves Rate: Tachycardia Voltage: Consistant with LVH When compared to previous EKG there are: No significant change Discharge - Discharge Clinical Impression: Shortness of breath Chest pain Qualifiers: Chest pain type: unspecified Qualified Code(s): R07.9 - Chest pain, unspecified Condition: Stable Disposition: HOME, SELF-CARE Additional Instructions: CHEST PAIN OF UNCLEAR CAUSE: The exact cause of your chest pain isn't clear. Fortunately, there is no evidence of a dangerous medical condition. Further testing may be required to find the source of the pain. Most often, we find that this pain is coming from the chest wall -- the muscles or rib joints in the chest. But chest pain can come from the lung and lung lining, the esophagus, the heart valves or heart lining, and even the stomach or gallbladder. Rest. Eat lightly until the pain is gone. We may prescribe medicine for pain and inflammation. You should call the physician immediately if the pain radiates to the shoulder, jaw or arms; if you start to run a fever or develop a cough; or if you develop shortness of breath, or other new or alarming symptoms. NORMAL EXAM AND WORKUP: At this time, your examination and workup show no significant abnormality. No significant abnormal physical findings were noted. All laboratory, EKG, and imaging (x-ray, CT scans, ultrasound) studies that were ordered show no significant abnormality. Although your examination and all studies that were ordered showed no significant abnormal finding, there are no examinations and no studies that are 100% accurate. There is always the possibility that some abnormality could exist and not be detected with physical examination or within the limits and capabilities of laboratory and other studies. You should return or follow up as you were instructed on your visit today for further evaluation if your symptoms do not resolve. CHEST WALL PAIN: Your chest pain may be coming from the chest wall. This is often caused by straining the muscles or joints in the chest during physical activity, direct trauma, coughing, or vigorous vomiting. Persons with arthritis are especially prone to this type of pain, due to inflammation of the cartilage joints near the breast bone. Occasionally, no cause can be found. Rest from strenuous physical activity. This kind of chest pain is usually made worse by movement of the chest. Depending on the symptoms, we may prescribe medicine for pain, muscle relaxation, and antiinflammatory effects. If the pain is new, and seems to be due to muscle strain, cold packs can help. Otherwise, apply gentle warmth to the painful area for 15 minutes every hour or two. You should call contact the doctor immediately if things change. Further evaluation is needed if you develop a fever or cough, if the nature of the pain changes, or if you become short of breath. ANGINA EPISODE: Your physician has diagnosed the pain you experienced as an episode of angina. Angina occurs when a portion of the heart muscle temporarily lacks oxygen. It does not cause any permanent heart damage, but serves as a warning. Hospitalization is not necessary now. Evaluation of your cardiac condition , and medical therapy for angina will be necessary. It's important you be sure to keep all appointments and take medication exactly as prescribed. Angina is usually treated with a type of "nitrate" medication. This is available as ointment, pills, or sublingual (under the tongue) tablets. Depending on your clinical situation, other medications may be added to help control angina. These may include beta blockers or calcium blockers. If episodes of angina are occurring with increased frequency, or if chest pain lasts longer than 15 minutes or does not respond to nitroglycerin, you must seek emergency medical care immediately. ASPIRIN: Aspirin has been shown to have a beneficial effect on blood circulation by reducing the clotting effect of platelets in the blood. These beneficial effects can be achieved by taking just a single baby (81 mg) aspirin a day. It is recommended that any person over the age of forty take a single baby aspirin every day for heart and brain circulation, unless you are allergic to aspirin or have some significant bleeding disorder. It is strongly recommended that people who have proven cardiac or blood circulation disturbances should take a baby aspirin every day. NITRATES: Nitroglycerin and related longer-acting nitrate medications are used to prevent or treat attacks of angina. These medicines dilate blood vessels, decreasing the work of the heart, and improving its supply of oxygen. Many different forms are available, including sublingual tablets (used under the tongue), sprays, skin patches, and long-acting pills. If the particular form of medication you have been given is not working well for you, contact your doctor. Long-acting forms: Take exactly as prescribed. Sudden stopping of medication can provoke increased attacks. Sublingual tabs or spray: A headache will usually occur with use. Sit or lie while waiting for the pain to go away. If angina doesn't respond to three doses (five minutes apart), call for emergency assistance. FOLLOW-UP CARE: If you have been referred to a physician for follow-up care, call the physician s office for an appointment as you were instructed or within the next two days. If you experience worsening or a significant change in your symptoms, notify the physician immediately or return to the Emergency Department at any time for re-evaluation. Referrals: LELIA OSORIO PA [Primary Care Provider] - Follow up as needed ANNA COWAN MD [ACTIVE STAFF] - Follow up as needed
[2017-02-26 22:01] LABS: ANION GAP 19 (5-19); CHLORIDE 100 mmol/L (98-107); SODIUM 141.2 mmol/L (137-145)
[2017-02-26] MEDS ORDERED: NORMAL SALINE 1000 ML 1,000 ML IV PRN (22:12)
--- NOTE | 2017-02-26 22:44 | RADIOLOGY REPORT (SQ) ---
EXAM DESCRIPTION: CTA CHEST COMPLETED DATE/TIME: 02/26/2017 10:33 pm REASON FOR STUDY: SOB, chest pain, tachycardia, recent surgery COMPARISON: Chest radiograph TECHNIQUE: CT scan of the chest performed using helical scanning technique with dynamic intravenous contrast injection. Images reviewed with lung, soft tissue and bone windows. Reconstructed coronal and sagittal MPR images reviewed. Additional 3 dimensional post-processing performed to develop Maximal Intensity Projection images ([place] P). All images stored on PACS. All CT scanners at this facility use dose modulation, iterative reconstruction, and/or weight based d osing when appropriate to reduce radiation dose to as low as reasonably achievable (ALARA). [facility]: Dose Right [facility]: CareDose [facility]: Dose Right [facility]: Teradose 4D [facility]: [employer] CONTRAST TYPE AND DOSE: contrast/concentration: Isovue 300.00 mg/ml; Total Contrast Delivered: 100.0 ml; Total Saline Delivered: 55.1 ml RENAL FUNCTION: None required. The patient is less than 50 years old. RADIATION DOSE: Up-to-date CT equipment and radiation dose reduction techniques were employed. CTDIv ol: 39.8 mGy. DLP: 1239 mGy-cm. . LIMITATIONS: None. FINDINGS: LUNGS AND PLEURA: No masses, infiltrates, pneumothorax. No pleural effusions, calcificati ons. AORTA AND GREAT VESSELS: No aneurysm or dissection. HEART: No pericardial effusion. PULMONARY ARTERIES: No emboli visualized in the main pulmonary arteries or the segmental branches. HILAR AND MEDIASTINAL STRUCTURES: No identified masses or abnormal nodes. HARDWARE: None in the chest. UPPER ABDOMEN: No significant findings. Limited exam. THYROID AND OTHER SOFT TISSUES: No masses. No adenopathy. BONES: No acute or significant finding. 3D MIPS: Confirm above findings. OTHER: No other significant finding. IMPRESSION: NORMAL CTA OF THE CHEST. NO PULMONARY EMBOLI. TECHNICAL DOCUMENTATION: JOB ID: [id number] Quality ID # [id number]: Final reports with documentation of one or more dose reduction techniques (e.g., Au tomated exposure control, adjustment of the mA and/or kV according to patient size, use of iterative reconstruction technique) 2010 [employer]- All Rights Reserved
[2017-02-26] MEDS ORDERED: LIDOCAINE 5% (700 MG) TRANSDERMAL ADH..PATCH TP ONE (23:12)
[2017-02-27 02:16] VITALS: BP 128/81
--- NOTE | 2017-02-27 08:18 | EKG REPORT ---
SEVERITY:- OTHERWISE NORMAL ECG - SINUS TACHYCARDIA BORDERLINE LEFT AXIS DEVIATION : Confirmed by: David Gardner MD 27-Feb-2017 08:17:58
--- NOTE | 2017-02-28 08:16 | EKG REPORT ---
SEVERITY:- BORDERLINE ECG - SINUS RHYTHM BORDERLINE LEFT AXIS DEVIATION BORDERLINE PROLONGED QT INTERVAL : Confirmed by: David Gardner MD 28-Feb-2017 08:16:02
== END 2017-02-27 02:14 | disposition home or self-care (01) ==
LOC: ER 20:56
DX: R07.9 Chest pain, unspecified (principal); R06.02 Shortness of breath; N17.9 Acute kidney failure, unspecified; R61 Generalized hyperhidrosis; R00.0 Tachycardia, unspecified; I10 Essential (primary) hypertension; E11.9 Type 2 diabetes mellitus without complications; Z88.8 Allergy status to other drugs, medicaments and biological substances
CPT/HCPCS: 93005; 99285; 36415; 82550; 85025; 80053; 84484; 71010; 71275; 93010; J3490; J7030

== ENCOUNTER → 2017-08-01 | Day surgery (SDC) | payer MEDICAID ==
--- NOTE | 2017-08-01 15:47 | RADIOLOGY REPORT (SQ) ---
EXAM DESCRIPTION: ARTHRO SHOULDER; FLUORO/NEEDLE PLACEMENT COMPLETED DATE/TIME: 08/01/2017 2:18 pm; 08/01/2017 2:19 pm REASON FOR STUDY: PAIN IN LEFT SHOULDER M25.512 PAIN IN LEFT SHOULDER COMPARISON: None. FLUOROSCOPY TIME: 14 seconds 1 digital radiographic image saved to PACS. LIMITATIONS: None. PROCEDURE: Procedure, risks, benefits and alternatives explained to patient who then gave written co nsent. The right shoulder was marked and a time out was called for correct procedure verification. P osterior entry site marked using fluoroscopic guidance. Shoulder prepped and draped using sterile te chnique. Local anesthesia achieved using 7 mL of 1% lidocaine injection. 22 gauge spinal needle int roduced into the joint space under direct fluoroscopic visualization. Non-ionic contrast instilled to confirm intra-articular position. Dilute gadolinium solution then injected. Needle removed and entr y site covered with sterile bandage. No immediate complications noted. TECHNIQUE: Digital images acquired during fluoroscopy and stored on PACS. Patient immediately take n to the MR suite for additional imaging. INJECTION LOCATION: Posterior left shoulder CONTRAST TYPE AND AMOUNT: 1 mL of Isovue-300 injected to confirm intra-articular needle placement. T his was followed by 9 mL of dilute ProHance gadolinium for MRI IMPRESSION: SUCCESSFUL NEEDLE PLACEMENT AND INJECTION FOR LEFT SHOULDER MR ARTHROGRAM USING POSTERIO R APPROACH. COMMENT: Quality ID [id number]: Final reports for procedures using fluoroscopy that document radiation exp osure indices, or exposure time and number of fluorographic images (if radiation exposure indices are not available) TECHNICAL DOCUMENTATION: JOB ID: [id number] [employer]- All Rights Reserved
--- NOTE | 2017-08-01 15:59 | RADIOLOGY REPORT (SQ) ---
EXAM DESCRIPTION: MRI LT UPPER JOINT WITHOUT COMPLETED DATE/TIME: 08/01/2017 3:19 pm REASON FOR STUDY: PAIN IN LEFT SHOULDER M25.512 PAIN IN LEFT SHOULDER COMPARISON: None. TECHNIQUE: Left shoulder images acquired and stored on PACS. Oblique coronal, oblique sagittal, and axial imaging to include fat sensitive sequences as T1, water sensitive sequences as FST2/STIR, and c ontrast sensitive sequences as FST1. LIMITATIONS: None. FINDINGS: JOINT DISTENTION: Adequate distention for interpretation. BONE MARROW AND CORTEX: Normal. No significant osteophytes. No edema or defects. AC JOINT: Type II acromion. Mild acromioclavicular joint hypertrophy with bony spurring and subcortic al cyst formation. Mild narrowing of the subacromial space. GLENOHUMERAL JOINT: No subluxation or dislocation. No focal chondral defects or reactive bone changes . ROTATOR CUFF: Mild undersurface irregularity of the distal supra and infraspinatus tendons without fu ll-thickness tear. No leakage of contrast from the joint space into the subacromial/subdeltoid bursa . Subscapularis intact. LABRUM AND BICEPS LABRAL COMPLEX: Normal signal in the rotator interval without tear of the superior glenohumeral ligament. Intra-articular long head biceps tendon is thickened and high in signal best shown on sagittal images 6-12. There is a tear of the superior labrum at the long head biceps tendon insertion extending posteriorly, best shown on axial images 7-11. No paralabral cysts. INFERIOR LABRAL COMPLEX: Bony glenoid and labrum intact. IGHL intact without thickening or tear. No p aralabral cysts. ADJACENT SOFT TISSUES: No masses or nodes. OTHER: No other significant finding. IMPRESSION: Mild undersurface tendinopathy of the supra and infraspinatus tendons without full-thick ness tear. Intra-articular long head biceps tendinopathy. Posterosuperior labral tear without paralabral cyst TECHNICAL DOCUMENTATION: JOB ID: [id number] [employer]- All Rights Reserved
== END ==
LOC: RAD 13:30
PROVIDERS: ATTEND Orthopaedic Surgery Sports Medicine
PROC: BP09ZZZ Plain Radiography of Left Shoulder (ICD-10-PCS; principal; 2017-08-01)
DX: M25.512 Pain in left shoulder (principal)
CPT/HCPCS: 73221; 73040; 77002; A9576

== ENCOUNTER → 2017-09-11 | Outpatient (CLI) | payer MEDICAID ==
[2017-09-11 11:46] LABS: ABSOLUTE EOSINOPHILS # (AUTO) 0.1 10^3/uL (0.0-0.6); ABSOLUTE LYMPHOCYTES (AUTO) 2.1 10^3/uL (0.5-4.7); ABSOLUTE MONOCYTES (AUTO) 0.3 10^3/uL (0.1-1.4); ABSOLUTE NEUT (AUTO) 2.7 10^3/uL (1.7-8.2); BASOPHILS % (AUTO) 0.7 % (0-2); EOSINOPHILS % (AUTO) 2.7 % (0-6); HEMOGLOBIN 14.1 g/dL (13.5-17.0); LYMPHOCYTES % (AUTO) 40.5 % (13-45); MEAN CORPUSCULAR HEMOGLOBIN 29.5 pg (27.0-33.4); MEAN CORPUSCULAR HGB CONC 33.5 g/dL (32.0-36.0); MEAN CORPUSCULAR VOLUME 88 fl (80-97); MONOCYTES % (AUTO) 5.6 % (3-13); PLATELET COUNT 209 10^3/uL (150-450); RED BLOOD COUNT 4.77 10^6/uL (4.35-5.55); RED CELL DISTRIBUTION WIDTH 15.2 % (11.5-14.0); SEGMENTED NEUTROPHILS % (AUTO) 50.5 % (42-78); TOTAL CELLS COUNTED % (AUTO) 100 %; WHITE BLOOD COUNT 5.3 10^3/uL (4.0-10.5)
[2017-09-11 12:10] LABS: ALANINE AMINOTRANSFERASE 44 U/L (21-72); ALBUMIN 4.6 g/dL (3.5-5.0); ALKALINE PHOSPHATASE 71 U/L (38-126); ANION GAP 12 (5-19); ASPARTATE AMINO TRANSFERASE 37 U/L (17-59); BILIRUBIN,DIRECT 0.2 mg/dL (0.0-0.4); BILIRUBIN,TOTAL 0.2 mg/dL (0.2-1.3); BLOOD UREA NITROGEN 27 mg/dL (7-20); CALCIUM 9.7 mg/dL (8.4-10.2); CARBON DIOXIDE 29 mmol/L (22-30); CHLORIDE 100 mmol/L (98-107); GLUCOSE 183 mg/dL (75-110); POTASSIUM 4.8 mmol/L (3.6-5.0); SODIUM 140.9 mmol/L (137-145); TOTAL PROTEIN 7.1 g/dL (6.3-8.2)
== END ==
LOC: OD 10:47
PROVIDERS: ATTEND Orthopaedic Surgery Sports Medicine
DX: Z11.2 Encounter for screening for other bacterial diseases (principal); I10 Essential (primary) hypertension
CPT/HCPCS: 36415; 80053; 85025; 87070

== ENCOUNTER → 2018-01-27 | Outpatient (CLI) | payer MEDICAID ==
--- NOTE | 2018-01-27 15:48 | RADIOLOGY REPORT (SQ) ---
EXAM DESCRIPTION: CHEST PA/LATERAL COMPLETED DATE/TIME: 01/27/2018 3:37 pm REASON FOR STUDY: SHORTNESS OF BREATH COMPARISON: CT angio chest 02/26/2017 Chest films 01/20/2017 EXAM PARAMETERS: NUMBER OF VIEWS: two views TECHNIQUE: Digital Frontal and Lateral radiographic views of the chest acquired. RADIATION DOSE: NA LIMITATIONS: none FINDINGS: LUNGS AND PLEURA: No opacities, masses or pneumothorax. No pleural effusion. MEDIASTINUM AND HILAR STRUCTURES: No masses or contour abnormalities. HEART AND VASCULAR STRUCTURES: Heart normal size. No evidence for failure. BONES: No acute findings. HARDWARE: None in the chest. OTHER: No other significant finding. IMPRESSION: NO SIGNIFICANT RADIOGRAPHIC FINDING IN THE CHEST. TECHNICAL DOCUMENTATION: JOB ID: [id number] [facility]- All Rights Reserved Reading location - IP/workstation name: [email or web address]
== END ==
LOC: OD 15:29
PROVIDERS: ATTEND Physician Assistant
DX: R06.02 Shortness of breath (principal)
CPT/HCPCS: 71046

== ENCOUNTER 2018-06-11 16:46 | Emergency (ER) | payer SELFPAY ==
[2018-06-11] MEDS ORDERED: RINGERS SOLUTION,LACTATED 1,000 ML IV ONE (17:32)
--- NOTE | 2018-06-11 17:33 | ER Document Report ---
ED Medical Screen (RME) - General Chief Complaint: High Blood Sugar Stated Complaint: BLOOD SUGAR ISSUE, VOMITING, STOMACH PAIN Time Seen by Provider: 06/11/18 17:28 TRAVEL OUTSIDE OF THE [place] IN LAST 30 DAYS: No - HPI Notes: 06/11/18 17:32 Out of insulin due to lack of insurance coming in nausea vomiting abdominal pain feeling unwell - Related Data Allergies/Adverse Reactions: losartan Allergy (Verified 01/20/17 14:12) niacin [Niacin] Allergy (Verified 12/01/15 15:56) Past Medical History - Past Medical History Cardiac Medical History: Reports: Hx Congestive Heart Failure, Hx Hypercholesterolemia, Hx Hypertension Neurological Medical History: Reports: Hx Migraine Endocrine Medical History: Reports: Hx Diabetes Mellitus Type 2 Renal/ Medical History: Denies: Hx Peritoneal Dialysis Musculoskeltal Medical History: Reports Hx Arthritis, Reports Hx Muscle Weakness , Reports Hx Musculoskeletal Deformity, Reports Hx Musculoskeletal Trauma Psychiatric Medical History: Reports: Hx Depression Traumatic Medical History: Reports: Hx Fractures Past Surgical History: Reports: Hx Abdominal Surgery - hernia, Hx Orthopedic Surgery - Immunizations Hx Diphtheria, Pertussis, Tetanus Vaccination: No Review of Systems - Review of Systems Gastrointestinal: Nausea, Vomiting Physical Exam - Vital signs Vitals: Temp Pulse Resp BP Pulse Ox 97.8 F 88 16 126/77 H 95 06/11/18 16:55 06/11/18 16:55 06/11/18 16:55 06/11/18 16:55 06/11/18 16:55 - Respiratory Respiratory status: No respiratory distress Chest status: Pain on movement Breath sounds: Normal Chest palpation: Normal - Cardiovascular Rhythm: Regular Heart sounds: Normal auscultation Course - Vital Signs Vital signs: Temp Pulse Resp BP Pulse Ox 97.8 F 88 16 126/77 H 95 06/11/18 16:55 06/11/18 16:55 06/11/18 16:55 06/11/18 16:55 06/11/18 16:55 Doctor's Discharge - Discharge Referrals: LELIA OSORIO PA [Primary Care Provider] - Follow up as needed
[2018-06-11 18:16] LABS: VENOUS BLOOD BASE EXCESS -0.5 mmol/L; VENOUS BLOOD HCO3 26.3 mmol/L (20-32); VENOUS BLOOD PCO2 51.3 mmHg (35-63); VENOUS BLOOD PH 7.33 (7.30-7.42)
[2018-06-11 18:25] LABS: PLATELET COUNT 245 10^3/uL (150-450); RED BLOOD COUNT 4.73 10^6/uL (4.35-5.55); WHITE BLOOD COUNT 6.2 10^3/uL (4.0-10.5)
[2018-06-11 18:39] LABS: ALANINE AMINOTRANSFERASE 21 U/L (21-72); ALKALINE PHOSPHATASE 212 U/L (38-126); ASPARTATE AMINO TRANSFERASE 18 U/L (17-59); BILIRUBIN,DIRECT 0.6 mg/dL (0.0-0.4); BILIRUBIN,TOTAL 0.8 mg/dL (0.2-1.3); BLOOD UREA NITROGEN 18 mg/dL (7-20); CALCIUM 8.4 mg/dL (8.4-10.2); LIPASE 143.4 U/L (23-300); POTASSIUM 4.7 mmol/L (3.6-5.0); TOTAL PROTEIN 7.4 g/dL (6.3-8.2)
[2018-06-11 18:44] LABS: CARBON DIOXIDE 20 mmol/L (22-30); CHLORIDE 82 mmol/L (98-107); SODIUM 124.5 mmol/L (137-145)
[2018-06-11 18:52] LABS: GLUCOSE 743 mg/dL (75-110)
[2018-06-11 18:53] LABS: ANION GAP 23 (5-19)
[2018-06-11 18:59] LABS: HEMOGLOBIN 14.2 g/dL (13.5-17.0); MEAN CORPUSCULAR HGB CONC 33.6 g/dL (32.0-36.0); MEAN CORPUSCULAR VOLUME 89 fl (80-97)
[2018-06-11 19:00] LABS: ABSOLUTE LYMPHOCYTES# (MANUAL) 2.7 10^3/uL (0.5-4.7); ABSOLUTE MONOCYTES # (MANUAL) 0.3 10^3/uL (0.1-1.4); BASOPHILS % (MANUAL) 2 % (0-2); EOSINOPHILS % (MANUAL) 1 % (0-6); LYMPHOCYTES % (MANUAL) 43 % (13-45); MONOCYTES % (MANUAL) 5 % (3-13); PLATELET COMMENT ADEQUATE; SEGMENTED NEUTROPHILS % (MAN) 49 % (42-78); TOTAL CELLS COUNTED 100
[2018-06-11] MEDS ORDERED: INSULIN REG, HUMAN 100 UNIT/ML 3 ML VIAL (PYX) IV ONE ×2 (19:07→22:56)
[2018-06-11] MEDS ORDERED: ONDANSETRON HCL INJ/PF 4 MG/2 ML SDV IV ONE (19:08)
[2018-06-11] MEDS ORDERED: RINGERS SOLUTION,LACTATED 2,000 ML IV ONE (19:08)
--- NOTE | 2018-06-11 19:11 | ER Document Report ---
ED General - General Chief Complaint: High Blood Sugar Stated Complaint: BLOOD SUGAR ISSUE, VOMITING, STOMACH PAIN Time Seen by Provider: 06/11/18 17:28 Notes: Patient is a 42-year-old male past medical history of hypertension, chronic back pain, type 2 diabetes with insulin dependence who presents with complaints of fatigue, polyuria, polydipsia, nausea and vomiting. States that symptoms have been ongoing for the past 6-8 weeks, have been progressively worsening over that time. States symptoms started after he lost insurance and access to his insulin. He has not been able to see his primary care doctor due to lack of insurance. Denies a history of similar symptoms in the past. He denies any abdominal pain, chest pain, shortness of breath, focal weakness or numbness. Nothing improves or worsens his symptoms. TRAVEL OUTSIDE OF THE [place] IN LAST 30 DAYS: No - Related Data Allergies/Adverse Reactions: losartan Allergy (Verified 01/20/17 14:12) niacin [Niacin] Allergy (Verified 12/01/15 15:56) Past Medical History - General Information source: Patient - Social History Smoking Status: Never Smoker Frequency of alcohol use: None Drug Abuse: Marijuana Lives with: Spouse/Significant other Family History: Reviewed & Not Pertinent Patient has suicidal ideation: No Patient has homicidal ideation: No - Past Medical History Cardiac Medical History: Reports: Hx Congestive Heart Failure, Hx Hypercholesterolemia, Hx Hypertension Neurological Medical History: Reports: Hx Migraine Endocrine Medical History: Reports: Hx Diabetes Mellitus Type 2 Renal/ Medical History: Denies: Hx Peritoneal Dialysis Musculoskeletal Medical History: Reports Hx Arthritis, Reports Hx Muscle Weakness, Reports Hx Musculoskeletal Deformity, Reports Hx Musculoskeletal Trauma Psychiatric Medical History: Reports: Hx Depression Traumatic Medical History: Reports: Hx Fractures Past Surgical History: Reports: Hx Abdominal Surgery - hernia, Hx Orthopedic Surgery - Immunizations Hx Diphtheria, Pertussis, Tetanus Vaccination: No Hx Pneumococcal Vaccination: 06/18/15 Review of Systems - Review of Systems Notes: Constitutional: Negative for fever. Positive for fatigue HENT: Negative for sore throat. Eyes: Negative for visual changes. Cardiovascular: Negative for chest pain. Respiratory: Negative for shortness of breath. Gastrointestinal: Negative for abdominal pain, positive for nausea and vomiting Genitourinary: Negative for dysuria. Musculoskeletal: Negative for back pain. Skin: Negative for rash. Neurological: Negative for headaches, weakness or numbness. 10 point ROS negative except as marked above and in HPI. Physical Exam - Vital signs Vitals: Temp Pulse Resp BP Pulse Ox 97.8 F 88 16 126/77 H 95 06/11/18 16:55 06/11/18 16:55 06/11/18 16:55 06/11/18 16:55 06/11/18 16:55 Interpretation: Normal Notes: PHYSICAL EXAMINATION: GENERAL: Appears moderately uncomfortable but in no acute distress HEAD: Atraumatic, normocephalic. EYES: Pupils equal round and reactive to light, extraocular movements intact, sclera anicteric, conjunctiva are normal. ENT: nares patent, oropharynx clear without exudates. Dry mucous membranes. NECK: Normal range of motion, supple without lymphadenopathy LUNGS: Breath sounds clear to auscultation bilaterally and equal. No wheezes rales or rhonchi. HEART: Regular rate and rhythm without murmurs ABDOMEN: Soft, nontender, normoactive bowel sounds. No guarding, no rebound. No masses appreciated. EXTREMITIES: Normal range of motion, no pitting or edema. No cyanosis. NEUROLOGICAL: No focal neurological deficits. Moves all extremities spontaneously and on command. PSYCH: Normal mood, normal affect. SKIN: Warm, Dry, normal turgor, no rashes or lesions noted. Course - Re-evaluation Re-evalutation: 06/11/18 19:09 Presentation of hypoglycemia with associated nausea, vomiting and fatigue that is been ongoing for the past several months. Patient has not been able to have any of his insulin for the past 2 months after losing insurance. No focal abdominal tenderness on examination to suggest a biliary pathology, acute pink otitis, acute hepatitis, bowel obstruction, acute appendicitis or any alternative abdominal pathology. Patient denies abdominal pain. Treatment with insulin and IV fluids given here in the emergency department with appropriate response of the blood sugar. Patient does have primary care follow- up. He will be able to fill his insulin tomorrow. I have added glipizide to his regiment and we have again reviewed the need to follow-up closely and get back on his normal medications under which his sugars were well controlled. At this time will discharge with return precautions and follow-up recommendations. Verbal discharge instructions given a the bedside and opportunity for questions given. Medication warnings reviewed. Patient is in agreement with this plan and has verbalized understanding of return precautions and the need for primary care follow-up in the next 24-72 hours. - Vital Signs Vital signs: Temp Pulse Resp BP Pulse Ox 97.8 F 88 16 126/77 H 95 06/11/18 16:55 06/11/18 16:55 06/11/18 16:55 06/11/18 16:55 06/11/18 16:55 - Laboratory Result Diagrams: 06/11/18 17:57 06/11/18 17:57 Laboratory results interpreted by me: 06/11/18 06/11/18 17:57 19:10 Sodium 124.5 L Chloride 82 L Carbon Dioxide 20 L Anion Gap 23 H Glucose 743 H* Magnesium 1.4 L Direct Bilirubin 0.6 H Alkaline Phosphatase 212 H Albumin 3.0 L Urine Glucose (UA) >=500 H Discharge - Discharge Clinical Impression: Hyperglycemia, Dehydration Type 2 diabetes mellitus Qualifiers: Diabetes mellitus terminal worker insulin use: with terminal worker use Diabetes mellitus complication status: with hyperglycemia Qualified Code(s): E11.65 - Type 2 diabetes mellitus with hyperglycemia Fatigue Qualifiers: Fatigue type: unspecified Qualified Code(s): R53.83 - Other fatigue Nausea and vomiting Qualifiers: Vomiting type: unspecified Vomiting Intractability: non-intractable Qualified Code(s): R11.2 - Nausea with vomiting, unspecified Condition: Fair Disposition: HOME, SELF-CARE Additional Instructions: You need to followup urgently with your primary care doctor as your blood sugars were dangerously high today. You did not have any evidence of a dangerous condition associated with these blood sugars at this time. However, it is very important that you get your blood sugars under control. Please take all of your medications exactly as directed. You should avoid foods that are high in carbohydrates and sugary foods. Losing weight will also help to better control your blood sugars. Please return to emergency department immediately if you develop weakness, persistent vomiting, confusion, or any other symptoms that are concerning to you. Take your metformin 1000 mg twice daily, take glipizide 10 mg daily, take your insulin as prescribed by your primary care doctor 3 times daily. If your blood sugars are not controlled, you may begin to increase your insulin 2 units per each dose until your sugars are consistently below 200. Prescriptions: Glipizide [Glipizide Xl] 10 mg PO DAILY #30 [id number] Referrals: LELIA OSORIO PA [Primary Care Provider] - Follow up tomorrow
[2018-06-11 19:41] LABS: APPEARANCE,URINE CLEAR; BILIRUBIN,URINE NEGATIVE (NEGATIVE); COLOR,URINE COLORLESS; GLUCOSE, URINE >=500 mg/dL (NEGATIVE); KETONES,URINE NEGATIVE (NEGATIVE); LEUKOCYTE ESTERASE,URINE NEGATIVE (NEGATIVE); NITRITE,URINE NEGATIVE (NEGATIVE); PROTEIN,URINE NEGATIVE (NEGATIVE); URINE SPECIFIC GRAVITY 1.024; UROBILINOGEN,URINE NEGATIVE mg/dL (<2.0)
[2018-06-11] MEDS ORDERED: KETOROLAC TROMETHAMINE INJ/PF 30 MG/1 ML SDV IV ONE (22:03)
[2018-06-11] MEDS ORDERED: LIDOCAINE 5% (700 MG) TRANSDERMAL ADH..PATCH TP ONE (22:03)
[2018-06-11 23:30] LABS: ANION GAP 19 (5-19); BLOOD UREA NITROGEN 17 mg/dL (7-20); CALCIUM 8.4 mg/dL (8.4-10.2); CARBON DIOXIDE 23 mmol/L (22-30); CHLORIDE 89 mmol/L (98-107); POTASSIUM 4.2 mmol/L (3.6-5.0); SODIUM 130.8 mmol/L (137-145)
[2018-06-11 23:40] LABS: GLUCOSE 477 mg/dL (75-110)
[2018-06-12 00:42] VITALS: BP 124/74
== END 2018-06-12 00:47 | disposition home or self-care (01) ==
LOC: ER 16:46
DX: E11.65 Type 2 diabetes mellitus with hyperglycemia (principal); E86.0 Dehydration; R11.2 Nausea with vomiting, unspecified; R10.9 Unspecified abdominal pain; I10 Essential (primary) hypertension; M54.9 Dorsalgia, unspecified; G89.29 Other chronic pain; Z88.8 Allergy status to other drugs, medicaments and biological substances; I50.9 Heart failure, unspecified; I11.0 Hypertensive heart disease with heart failure; E78.00 Pure hypercholesterolemia, unspecified; M19.90 Unspecified osteoarthritis, unspecified site; R53.83 Other fatigue
CPT/HCPCS: 99283; 96361; 96374; 96375; 36415; 82962; 83690; 83735; 85025; 80048; 80053; 81001; 82803; J1885; J1815; J2405; J7120

== ENCOUNTER 2019-04-11 01:45 | Emergency (ER) | payer BC ==
[2019-04-11] MEDS ORDERED: OXYCODONE-ACETAMINOPHEN 5-325 MG TABLET PO ONE (04:43)
[2019-04-11] MEDS ORDERED: ONDANSETRON 4 MG TAB.RAPDIS PO ONE (04:43)
--- NOTE | 2019-04-11 04:48 | ER Document Report ---
HPI - HPI Time Seen by Provider: 04/11/19 04:36 Pain Level: 5 Context: Patient is a 43-year-old male that comes to the emergency department for chief complaint of left ankle pain. He states this is been going progressing over the past 2 weeks, now it is hard to walk on the foot. He denies injury. Pain is over the side and at the base of the left ankle wrapping around to the Achilles. Pain is not on the bottom of the foot. Patient states he was seen by primary c are, had an x-ray, was treated with colchicine for possible gout. He does not have a history of gout. He denies fever/chills, he denies pain in his back, pain in his leg, or any other locations of pain. - REPRODUCTIVE Reproductive: DENIES: : Past Medical History - General Information source: Patient - Social History Smoking Status: Never Smoker Frequency of alcohol use: None Drug Abuse: None Lives with: Family Family History: Reviewed & Not Pertinent - Past Medical History Cardiac Medical History: Reports: Hx Congestive Heart Failure, Hx Hypercholesterolemia, Hx Hypertension Neurological Medical History: Reports: Hx Migraine Endocrine Medical History: Reports: Hx Diabetes Mellitus Type 2 Renal/ Medical History: Denies: Hx Peritoneal Dialysis Musculoskeletal Medical History: Reports Hx Arthritis, Reports Hx Muscle Weakness, Reports Hx Musculoskeletal Deformity, Reports Hx Musculoskeletal Trauma Psychiatric Medical History: Reports: Hx Depression Traumatic Medical History: Reports: Hx Fractures Past Surgical History: Reports: Hx Abdominal Surgery - hernia, Hx Orthopedic Surgery - Immunizations Hx Diphtheria, Pertussis, Tetanus Vaccination: Yes Hx Pneumococcal Vaccination: 06/18/15 Vertical Provider Document - CONSTITUTIONAL General Appearance: WD/WN, No Apparent Distress - INFECTION CONTROL TRAVEL OUTSIDE OF THE [place] IN LAST 30 DAYS: No - HEENT HEENT: Atraumatic, Normal ENT Exam, Normocephalic - NECK Neck: Normal Inspection - RESPIRATORY Respiratory: Breath Sounds Normal, No Respiratory Distress - CARDIOVASCULAR Cardiovascular: Regular Rate, Regular Rhythm - GI/ABDOMEN Gastrointestinal: Abdomen Soft, Abdomen Non-Tender - BACK Back: Normal Inspection - MUSCULOSKELETAL/EXTREMETIES Musculoskeletal/Extremeties: Tender - Left ankle tender over the lateral malleolus, just beneath this, and just posterior to this. There is some soft tissue swelling. There is no erythema, no significant tenderness, range of motion of the ankle intact, normal capillary refill and sensation, normal leg, knee, hip exam. - NEURO Level of Consciousness: Awake, Alert, Appropriate Motor/Sensory: No Motor Deficit, No Sensory Deficit - DERM Integumentary: Warm, Dry, No Rash Course - Re-evaluation Re-evalutation: X-ray showing soft tissue swelling of the ankle only. This is consistent with patient's exam. However there are no signs of infection, patient has full range of motion of the ankle, normal capillary refill and sensation, no significant tenderness to the area. I discussed results with patient. Patient will be placed in immobilization, crutches, he will stay off this now instead of continually walking on the injured ankle and making it worse, he will follow-up with orthopedics if symptoms continue. Patient states understanding and agreement. - Vital Signs Vital signs: Temp Pulse Resp BP Pulse Ox 97.5 F 90 19 144/83 H 97 04/11/19 01:47 04/11/19 01:47 04/11/19 01:47 04/11/19 01:47 04/11/19 01:47 Procedures - Immobilization Left ankle Pre-Proc Neuro Vasc Exam: Normal Immobilizer type: Tunde wrap, Ankle stirrup Performed by: PCT Post-Proc Neuro Vasc Exam: Normal Alignment checked and good: Yes Discharge - Discharge Clinical Impression: Left ankle swelling Condition: Stable Disposition: HOME, SELF-CARE Additional Instructions: There is soft tissue swelling of the left ankle joint. Remaining evaluation does not show any concerning findings. I recommend that you wear the ankle stirrup and TUNDE wrap, use the crutches, elevate, ice 3-4 times a day for 10 to 15 minutes, and take the anti-inflammatory. Recommend doing this for at least the next several days. Symptoms should resolve. If symptoms continue follow-up with orthopedic referral. Return if you worsen including developing redness, severe pain or swelling, fever, or any other concerning or worsening symptoms. Prescriptions: Naproxen 500 mg PO BID PRN #20 tablet PRN Reason: Referrals: KELLE HUTTON MD [ACTIVE STAFF] - Follow up in 1 week
--- NOTE | 2019-04-11 05:18 | RADIOLOGY REPORT (SQ) ---
EXAM: X-ray ankle three or more views CLINICAL DATA: 43-year-old male with left ankle swelling and pain TECHNICAL DATA: Three x-ray views of the left ankle were performed on 04/11/2019 at 4:56 AM. COMPARISONS: None FINDINGS: There is no evidence of fracture or dislocation. There is no significant arthritis or degenerative change. No focal lytic or sclerotic bone lesions are seen. Bone mineralization is normal. There is soft tissue swelling surrounding the left ankle. IMPRESSION: No evidence of acute osseous injury involving the left ankle. There is soft tissue swelling surrounding the left ankle..
[2019-04-11 06:03] VITALS: BP 142/78
== END 2019-04-11 06:23 | disposition home or self-care (01) ==
LOC: ER 01:45
DX: M25.572 Pain in left ankle and joints of left foot (principal); M25.472 Effusion, left ankle; I50.9 Heart failure, unspecified; I11.0 Hypertensive heart disease with heart failure; E78.00 Pure hypercholesterolemia, unspecified; E11.9 Type 2 diabetes mellitus without complications
CPT/HCPCS: 99283; 73610; L1902; S0119; L4350

== ENCOUNTER → 2019-06-22 | Outpatient (CLI) | payer BC ==
[2019-06-22 11:47] LABS: ABSOLUTE BASOPHILS # (AUTO) 0.1 10^3/uL (0.0-0.2); ABSOLUTE EOSINOPHILS # (AUTO) 0.1 10^3/uL (0.0-0.6); ABSOLUTE MONOCYTES (AUTO) 0.3 10^3/uL (0.1-1.4); EOSINOPHILS % (AUTO) 2.7 % (0-6); HEMATOCRIT 46.3 % (37.9-51.0); HEMOGLOBIN 15.5 g/dL (13.5-17.0); LYMPHOCYTES % (AUTO) 36.2 % (13-45); MEAN CORPUSCULAR HEMOGLOBIN 28.7 pg (27.0-33.4); MEAN CORPUSCULAR HGB CONC 33.4 g/dL (32.0-36.0); MEAN CORPUSCULAR VOLUME 86 fl (80-97); MONOCYTES % (AUTO) 5.1 % (3-13); PLATELET COUNT 233 10^3/uL (150-450); RED BLOOD COUNT 5.38 10^6/uL (4.35-5.55); RED CELL DISTRIBUTION WIDTH 14.2 % (11.5-14.0); TOTAL CELLS COUNTED % (AUTO) 100 %; WHITE BLOOD COUNT 5.5 10^3/uL (4.0-10.5)
[2019-06-22 12:06] LABS: ALBUMIN 4.7 g/dL (3.5-5.0); ALKALINE PHOSPHATASE 91 U/L (38-126); ANION GAP 16 (5-19); ASPARTATE AMINO TRANSFERASE 46 U/L (17-59); BILIRUBIN,DIRECT 0.2 mg/dL (0.0-0.4); BILIRUBIN,TOTAL 0.4 mg/dL (0.2-1.3); BLOOD UREA NITROGEN 33 mg/dL (7-20); CALCIUM 9.9 mg/dL (8.4-10.2); CARBON DIOXIDE 27 mmol/L (22-30); CHLORIDE 95 mmol/L (98-107); CHOLESTEROL 298.44 mg/dL (0-200); GLUCOSE 327 mg/dL (75-110); POTASSIUM 4.3 mmol/L (3.6-5.0); TOTAL PROTEIN 7.8 g/dL (6.3-8.2)
[2019-06-22 12:16] LABS: TRIGLYCERIDES 831 mg/dL (<150)
[2019-06-22 12:17] LABS: DIRECT LDL 156 mg/dL (<100)
== END ==
LOC: OD 10:51
PROVIDERS: ATTEND Nurse Practitioner Psychiatric/Mental Health
DX: F43.12 Post-traumatic stress disorder, chronic (principal); Z79.899 Other long term (current) drug therapy
CPT/HCPCS: 36415; 80053; 80061; 83036; 84443; 85025

== ENCOUNTER 2019-10-01 11:20 | Emergency (ER) | payer BC ==
[2019-10-01] MEDS ORDERED: IPRATROPIUM/ALBUTEROL 0.5-2.5 MG/3 ML AMPUL NEB ONE (11:55)
--- NOTE | 2019-10-01 11:57 | ER Document Report ---
ED Medical Screen (RME) - General Chief Complaint: Shortness Of Breath Stated Complaint: SHORTNESS OF BREATH Time Seen by Provider: 10/01/19 11:52 Primary Care Provider: MICHAEL MONTE NP [Primary Care Provider] - Follow up as needed TRAVEL OUTSIDE OF THE [place] IN LAST 30 DAYS: No - HPI Notes: 10/01/19 11:56 Patient is a 44-year-old male with a history of hypertension and diabetes who presents complaining of nasal congestion is discharge, cough, shortness of breath, body ache, intermittent fever for the past 6 days. Patient was initially evaluated at that time and had negative lab testing. Patient states his symptoms persisted and he was evaluated again by his family doctor who placed him on Augmentin 2 days ago. He was then seen again this morning by his family doctor noted that he was 88 to 91% on room air and was sent here for evaluation. I have treated and performed a rapid initial assessment of this patient. A comprehensive ED assessment and evaluation of the patient, analysis of test results and completion of medical decision making process will be conducted by additional ED providers. PHYSICAL EXAMINATION: GENERAL: Well-appearing, well-nourished and in no acute distress. A&Ox4. Answers questions appropriately. Lungs: Diminished bilaterally - Related Data Allergies/Adverse Reactions: losartan Allergy (Verified 10/01/19 11:51) niacin [Niacin] Allergy (Verified 10/01/19 11:51) Past Medical History - Past Medical History Cardiac Medical History: Reports: Hx Congestive Heart Failure, Hx Hypercholesterolemia, Hx Hypertension Neurological Medical History: Reports: Hx Migraine Endocrine Medical History: Reports: Hx Diabetes Mellitus Type 2 Renal/ Medical History: Denies: Hx Peritoneal Dialysis Musculoskeltal Medical History: Reports Hx Arthritis, Reports Hx Muscle Weakness, Reports Hx Musculoskeletal Deformity, Reports Hx Musculoskeletal Trauma Psychiatric Medical History: Reports: Hx Depression Traumatic Medical History: Reports: Hx Fractures Past Surgical History: Reports: Hx Abdominal Surgery - hernia, Hx Orthopedic Surgery - Immunizations Hx Diphtheria, Pertussis, Tetanus Vaccination: Yes Physical Exam - Vital signs Vitals: Temp Pulse Resp BP Pulse Ox 97.9 F 104 H 18 154/92 H 91 L 10/01/19 11:41 10/01/19 11:41 10/01/19 11:41 10/01/19 11:41 10/01/19 11:41 Course - Vital Signs Vital signs: Temp Pulse Resp BP Pulse Ox 97.9 F 104 H 18 154/92 H 91 L 10/01/19 11:41 10/01/19 11:41 10/01/19 11:41 10/01/19 11:41 10/01/19 11:41 Doctor's Discharge - Discharge Referrals: MICHAEL MONTE NP [Primary Care Provider] - Follow up as needed
[2019-10-01 12:58] LABS: VENOUS BLOOD BASE EXCESS 1.8 mmol/L; VENOUS BLOOD PCO2 56.9 mmHg (35-63); VENOUS BLOOD PH 7.33 (7.30-7.42)
[2019-10-01 13:05] LABS: HEMATOCRIT 37.4 % (37.9-51.0); HEMOGLOBIN 12.4 g/dL (13.5-17.0); MEAN CORPUSCULAR HEMOGLOBIN 28.9 pg (27.0-33.4); MEAN CORPUSCULAR HGB CONC 33.3 g/dL (32.0-36.0); MEAN CORPUSCULAR VOLUME 87 fl (80-97); PLATELET COUNT 292 10^3/uL (150-450); RED CELL DISTRIBUTION WIDTH 15.2 % (11.5-14.0); WHITE BLOOD COUNT 6.8 10^3/uL (4.0-10.5)
[2019-10-01 13:25] LABS: ALBUMIN 3.9 g/dL (3.5-5.0); ALKALINE PHOSPHATASE 80 U/L (38-126); ANION GAP 14 (5-19); ASPARTATE AMINO TRANSFERASE 29 U/L (17-59); BILIRUBIN,DIRECT 0.3 mg/dL (0.0-0.4); BILIRUBIN,TOTAL 0.7 mg/dL (0.2-1.3); BLOOD UREA NITROGEN 23 mg/dL (7-20); CALCIUM 9.2 mg/dL (8.4-10.2); CARBON DIOXIDE 27 mmol/L (22-30); CHLORIDE 94 mmol/L (98-107); GLUCOSE 251 mg/dL (75-110); POTASSIUM 5.6 mmol/L (3.6-5.0); TOTAL PROTEIN 6.9 g/dL (6.3-8.2)
[2019-10-01 13:33] LABS: ABSOLUTE LYMPHOCYTES# (MANUAL) 2.6 10^3/uL (0.5-4.7); ABSOLUTE MONOCYTES # (MANUAL) 0.7 10^3/uL (0.1-1.4); BAND NEUTROPHILS % (MANUAL) 3 % (3-5); BASOPHILS % (MANUAL) 0 % (0-2); EOSINOPHILS % (MANUAL) 1 % (0-6); LYMPHOCYTES % (MANUAL) 38 % (13-45); METAMYELOCYTES % (MANUAL) 2 % (0-1); MONOCYTES % (MANUAL) 10 % (3-13); SEGMENTED NEUTROPHILS % (MAN) 46 % (42-78); TOTAL CELLS COUNTED 100
[2019-10-01 13:34] LABS: ANISOCYTOSIS SLIGHT; PLATELET COMMENT ADEQUATE; TOXIC GRANULATION 1+
[2019-10-01 13:40] LABS: A TYPE INFLUENZA AG NEGATIVE (NEGATIVE); B INFLUENZA AG NEGATIVE (NEGATIVE)
--- NOTE | 2019-10-01 13:51 | RADIOLOGY REPORT (SQ) ---
EXAM DESCRIPTION: CHEST 2 VIEWS COMPLETED DATE/TIME: 10/01/2019 12:53 pm REASON FOR STUDY: cough, sob COMPARISON: PA and lateral views of the chest from 01/20/2017. EXAM PARAMETERS: NUMBER OF VIEWS: Two views. TECHNIQUE: PA and lateral views of the chest were obtained.. RADIATION DOSE: NA LIMITATIONS: none FINDINGS: LUNGS AND PLEURA: Low inspiratory lung volumes without a superimposed consolidation, pleur al effusion or pneumothorax. MEDIASTINUM AND HILAR STRUCTURES: No mediastinal or hilar contour abnormality. HEART AND VASCULAR STRUCTURES: The cardiac silhouette and pulmonary vasculature are within normal bates its. BONES: No acute findings. HARDWARE: None in the chest. OTHER: No other finding. IMPRESSION: No acute cardiopulmonary process. TECHNICAL DOCUMENTATION: JOB ID: [id number] 2010 [employer]- All Rights Reserved Reading location - IP/workstation name: [email or web address]
--- NOTE | 2019-10-01 16:14 | ER Document Report ---
ED General - General Chief Complaint: Shortness Of Breath Stated Complaint: SHORTNESS OF BREATH Time Seen by Provider: 10/01/19 11:52 Primary Care Provider: MICHAEL MONTE NP [NO LOCAL MD] - Follow up as needed Mode of Arrival: Ambulatory Information source: Patient Notes: 44-year-old male arrives with chief complaint of shortness of breath congestion cough fever flu symptoms for least 6 days. Patient is on antibiotics at this time for pneumonia. His chest x-ray was within normal limits. His Lashay has had URI flu symptoms for 1 month. She had 3 weeks of URI symptoms and then saw her personal doctor last week. Patient admits to myalgias cephalgia green nasal phlegm and he is now on Augmentin. TRAVEL OUTSIDE OF THE [place] IN LAST 30 DAYS: No - HPI Onset: Other - 6 days Onset/Duration: Sudden Quality of pain: Achy Severity: Moderate Pain Level: 2 Associated symptoms: Productive cough, Fever, Hoarseness, Sinus pain/drainage, Shortness of breath Exacerbated by: Denies Relieved by: Denies Similar symptoms previously: No Recently seen / treated by doctor: Yes - Related Data Allergies/Adverse Reactions: losartan Allergy (Verified 10/01/19 11:51) niacin [Niacin] Allergy (Verified 10/01/19 11:51) Past Medical History - General Information source: Patient - Social History Smoking Status: Former Smoker Cigarette use (# per day): No Chew tobacco use (# tins/day): No Smoking Education Provided: No Frequency of alcohol use: None Drug Abuse: None Lives with: Family Family History: Reviewed & Not Pertinent Patient has suicidal ideation: No Patient has homicidal ideation: No - Past Medical History Cardiac Medical History: Reports: Hx Congestive Heart Failure, Hx Hypercholesterolemia, Hx Hypertension Neurological Medical History: Reports: Hx Migraine Endocrine Medical History: Reports: Hx Diabetes Mellitus Type 2 Renal/ Medical History: Denies: Hx Peritoneal Dialysis Musculoskeletal Medical History: Reports Hx Arthritis, Reports Hx Muscle Weakness, Reports Hx Musculoskeletal Deformity, Reports Hx Musculoskeletal Trauma Psychiatric Medical History: Reports: Hx Depression Traumatic Medical History: Reports: Hx Fractures Past Surgical History: Reports: Hx Abdominal Surgery - hernia, Hx Orthopedic Surgery - Immunizations Hx Diphtheria, Pertussis, Tetanus Vaccination: Yes Hx Pneumococcal Vaccination: 06/18/15 Review of Systems - Review of Systems Constitutional: See HPI, Chills, Fever, Malaise, Weakness, Recent illness EENT: See HPI, Nose congestion, Nose discharge, Sinus pressure Cardiovascular: No symptoms reported Respiratory: See HPI, Cough, Short of breath Gastrointestinal: No symptoms reported Genitourinary: No symptoms reported Male Genitourinary: No symptoms reported Musculoskeletal: No symptoms reported Skin: No symptoms reported Hematologic/Lymphatic: No symptoms reported Neurological/Psychological: No symptoms reported Physical Exam - Vital signs Vitals: Temp Pulse Resp BP Pulse Ox 97.9 F 104 H 18 154/92 H 91 L 10/01/19 11:41 10/01/19 11:41 10/01/19 11:41 10/01/19 11:41 10/01/19 11:41 Interpretation: Hypoxic - General General appearance: Other - Sick with influenza - HEENT Head: Normocephalic Eyes: Normal Conjunctiva: Normal Cornea: Normal Extraocular movements intact: Yes Eyelashes: Normal Pupils: PERRL Sinus: Swelling Nasal: Normal Mouth/Lips: Normal Pharynx: Erythema Neck: Normal - Respiratory Respiratory status: Respiratory distress Chest status: Nontender Breath sounds: Productive cough Chest palpation: Normal - Cardiovascular Rhythm: Tachycardia Heart sounds: Normal auscultation Murmur: No Friction rub: No Zahida's crunch: No - Abdominal Inspection: Normal Distension: No distension Bowel sounds: Normal Tenderness: Nontender Organomegaly: No organomegaly - Back Back: Normal - Extremities General upper extremity: Normal inspection General lower extremity: Normal inspection - Neurological Neuro grossly intact: Yes Cognition: Normal Orientation: AAOx4 [place] Coma Scale Eye Opening: Spontaneous Jaime Coma Scale Verbal: Oriented [place] Coma Scale Motor: Obeys Commands Jaime Coma Scale Total: 15 Speech: Normal Cranial nerves: Normal Cerebellar coordination: Normal Motor strength normal: LUE, RUE, LLE, RLE - Psychological Associated symptoms: Normal affect - Skin Skin Temperature: Warm Skin Moisture: Dry Course - Vital Signs Vital signs: Temp Pulse Resp BP Pulse Ox 98.7 F 104 H 15 151/84 H 97 10/01/19 17:00 10/01/19 11:41 10/01/19 15:00 10/01/19 12:13 10/01/19 15:00 - Laboratory Result Diagrams: 10/01/19 12:38 10/01/19 12:38 Laboratory results interpreted by me: 10/01/19 10/01/19 12:38 12:38 RBC 4.30 L Hgb 12.4 L Hct 37.4 L RDW 15.2 H Metamyelocytes % 2 H Sodium 134.8 L Potassium 5.6 H Chloride 94 L BUN 23 H Glucose 251 H - Diagnostic Test Radiology reviewed: Reports reviewed Radiology results interpreted by me: 10/01/19 18:34 CT scan reveals opacities and both lungs but especially right lower lung - EKG Interpretation by Me EKG shows normal: Sinus rhythm Rate: Tachycardia Critical Care Note - Critical Care Note Total time excluding time spent on procedures (mins): 90 Discharge - Discharge Clinical Impression: Influenza, Pneumonia Condition: Good Disposition: HOME, SELF-CARE Additional Instructions: Follow-up with personal doctor return to ER as needed take medicines as directed and drink chamomile tea; will add Levaquin 500 daily as well as Atarax and prednisone; will write for Xofluza is a polymerase inhibitor Prescriptions: Hydroxyzine HCl [Atarax 10 mg Tablet] 10 mg PO TID PRN #30 tablet PRN Reason: Congestion Prednisone [Deltasone 20 mg Tablet] 2 tab PO DAILY 5 Days tablet Levofloxacin [Levaquin 750 mg Tablet] 750 mg PO DAILY #10 tablet Referrals: MICHAEL MONTE NP [NO LOCAL MD] - Follow up as needed
--- NOTE | 2019-10-01 17:32 | RADIOLOGY REPORT (SQ) ---
EXAM DESCRIPTION: CTA CHEST COMPLETED DATE/TIME: 10/01/2019 4:59 pm REASON FOR STUDY: hypoxia COMPARISON: 02/26/2017 TECHNIQUE: CT scan of the chest performed using helical scanning technique with dynamic intravenous contrast injection. Images reviewed with lung, soft tissue and bone windows. Reconstructed coronal and sagittal MPR images reviewed. Additional 3 dimensional post-processing performed to develop Maximal Intensity Projection images (TX P). All images stored on PACS. All CT scanners at this facility use dose modulation, iterative reconstruction, and/or weight based d osing when appropriate to reduce radiation dose to as low as reasonably achievable (ALARA). [facility]: Dose Right [facility]: CareDose [facility]: Dose Right [facility]: Teradose 4D [facility]: Augmedix CONTRAST TYPE AND DOSE: contrast/concentration: Isovue 350.00 mg/ml; Total Contrast Delivered: 75.0 ml; Total Saline Delivered: 80.0 ml Contrast bolus adequate for pulmonary arteries and aorta. RENAL FUNCTION: None required. The patient is less than 50 years old. RADIATION DOSE: CT Rad equipment meets quality standard of care and radiation dose reduction techniq ues were employed. CTDIvol: 22.3 - 37.2 mGy. DLP: 1319 mGy-cm. . LIMITATIONS: None. FINDINGS: LUNGS AND PLEURA: No pneumothorax. Small airspace opacities are present in both lungs, gr eatest in the right lower lobe. No pleural effusions. AORTA AND GREAT VESSELS: No aneurysm. Contrast bolus not optimized for the aorta. HEART: No pericardial effusion. No significant coronary artery calcifications. PULMONARY ARTERIES: No emboli visualized in the main pulmonary arteries or the segmental branches. HILAR AND MEDIASTINAL STRUCTURES: No identified masses or abnormal nodes. HARDWARE: None in the chest. UPPER ABDOMEN: No significant findings. Limited exam. THYROID AND OTHER SOFT TISSUES: No masses. No adenopathy. BONES: No acute finding. 3D MIPS: Confirm above findings. OTHER: No other significant finding. IMPRESSION: No emboli visualized in the main pulmonary arteries or the segmental branches.Small airs pace opacities are present in both lungs, greatest in the right lower lobe. No pleural effusions. COMMENT: Quality ID # [id number]: Final reports with documentation of one or more dose reduction techniques (e.g., Automated exposure control, adjustment of the mA and/or kV according to patient size, use of iterative reconstruction technique) TECHNICAL DOCUMENTATION: JOB ID: [id number] [place]-72 2010 [employer]- All Rights Reserved Reading location - IP/workstation name: [email or web address]
[2019-10-01 19:30] VITALS: BP 136/77
--- NOTE | 2019-10-01 20:17 | EKG REPORT ---
SEVERITY:- OTHERWISE NORMAL ECG - SINUS TACHYCARDIA BORDERLINE LEFT AXIS DEVIATION : Confirmed by: David Gardner MD 01-Oct-2019 20:17:03
== END 2019-10-01 19:22 | disposition home or self-care (01) ==
LOC: ER 11:20
DX: J11.00 Influenza due to unidentified influenza virus with unspecified type of pneumonia (principal); J18.9 Pneumonia, unspecified organism; R06.02 Shortness of breath
CPT/HCPCS: 36415; 71046; 71275; 80053; 82803; 83605; 85025; 87040; 87804; 93005; 93010; 94640; 99285; J7620

== ENCOUNTER 2020-08-20 22:42 | Emergency (ER) | payer BC ==
--- NOTE | 2020-08-20 23:42 | ER Document Report ---
ED Medical Screen (RME) - General Chief Complaint: Leg Swelling Stated Complaint: SHORTNESS OF BREATH SWELLING OF LEGS AND ABDOMIN Time Seen by Provider: 08/20/20 23:24 Primary Care Provider: SÁNCHEZ VELEZ NP [Primary Care Provider] - Follow up as needed Notes: Patient is a 45-year-old male presents to the emergency department with a chief complaint of bilateral lower extremity swelling and shortness of breath. Patient's multi site leasing consultant is [facility]. Patient does have a history of congestive heart failure. Patient states that he noticed his leg swelling yesterday and developed shortness of breath today. Exam: S1, S2. 2+ bilateral lower extremity edema. I have greeted and performed a rapid initial assessment of this patient. A comprehensive ED assessment and evaluation of the patient, analysis of test results and completion of medical decision making process will be conducted by an additional ED providers. TRAVEL OUTSIDE OF THE [place] IN LAST 30 DAYS: No - Related Data Allergies/Adverse Reactions: losartan Allergy (Verified 10/01/19 11:51) niacin [Niacin] Allergy (Verified 10/01/19 11:51) Past Medical History - Past Medical History Cardiac Medical History: Reports: Hx Congestive Heart Failure, Hx Hypercholesterolemia, Hx Hypertension Neurological Medical History: Reports: Hx Migraine Endocrine Medical History: Reports: Hx Diabetes Mellitus Type 2 Renal/ Medical History: Denies: Hx Peritoneal Dialysis Musculoskeltal Medical History: Reports Hx Arthritis, Reports Hx Muscle Weakness, Reports Hx Musculoskeletal Deformity, Reports Hx Musculoskeletal Trauma Psychiatric Medical History: Reports: Hx Depression Traumatic Medical History: Reports: Hx Fractures Past Surgical History: Reports: Hx Abdominal Surgery - hernia, Hx Orthopedic Surgery - Immunizations Hx Diphtheria, Pertussis, Tetanus Vaccination: Yes Doctor's Discharge - Discharge Referrals: SÁNCHEZ VELEZ NP [Primary Care Provider] - Follow up as needed
[2020-08-21 01:46] LABS: ALBUMIN 3.6 g/dL (3.5-5.0); ALKALINE PHOSPHATASE 110 U/L (38-126); ANION GAP 13 (5-19); ASPARTATE AMINO TRANSFERASE 50 U/L (17-59); BILIRUBIN,DIRECT 0.5 mg/dL (0.0-0.4); BILIRUBIN,TOTAL 0.6 mg/dL (0.2-1.3); BLOOD UREA NITROGEN 18 mg/dL (7-20); CALCIUM 8.8 mg/dL (8.4-10.2); CARBON DIOXIDE 25 mmol/L (22-30); CHLORIDE 93 mmol/L (98-107); GLUCOSE 331 mg/dL (75-110); POTASSIUM 5.1 mmol/L (3.6-5.0)
[2020-08-21 01:58] LABS: TROPONIN I 0.013 ng/mL
--- NOTE | 2020-08-21 02:00 | RADIOLOGY REPORT (SQ) ---
CHEST X-RAY 2 view on 08/21/2020 at 1:37 AM CLINICAL INDICATION: Shortness of breath COMPARISON: 10/01/2019 FINDINGS: The lungs are clear. Cardiac, hilar and mediastinal contours are within normal limits. Pulmonary vascularity is within normal limits. No bony abnormality is noted. IMPRESSION: No active disease.
[2020-08-21 02:05] LABS: HEMATOCRIT 37.3 % (37.9-51.0); HEMOGLOBIN 13.8 g/dL (13.5-17.0); MEAN CORPUSCULAR HEMOGLOBIN 31.2 pg (27.0-33.4); MEAN CORPUSCULAR HGB CONC 36.9 g/dL (32.0-36.0); MEAN CORPUSCULAR VOLUME 85 fl (80-97); PLATELET COUNT 214 10^3/uL (150-450); RED BLOOD COUNT 4.41 10^6/uL (4.35-5.55); RED CELL DISTRIBUTION WIDTH 15.9 % (11.5-14.0); WHITE BLOOD COUNT 4.1 10^3/uL (4.0-10.5)
[2020-08-21] MEDS ORDERED: ACETAMINOPHEN 325 MG TABLET PO ONE (02:10)
[2020-08-21 02:40] LABS: ABSOLUTE MONOCYTES # (MANUAL) 0.4 10^3/uL (0.1-1.4); BASOPHILS % (MANUAL) 0 % (0-2); EOSINOPHILS % (MANUAL) 4 % (0-6); LYMPHOCYTES % (MANUAL) 24 % (13-45); MONOCYTES % (MANUAL) 10 % (3-13); SEGMENTED NEUTROPHILS % (MAN) 62 % (42-78); TOTAL CELLS COUNTED 100
[2020-08-21 02:42] LABS: ANISOCYTOSIS 1+; OVALOCYTES SLIGHT; POIKILOCYTOSIS SLIGHT; TEAR DROP CELLS SLIGHT; TOXIC GRANULATION SLIGHT
[2020-08-21 02:43] LABS: PLATELET COMMENT ADEQUATE
--- NOTE | 2020-08-21 04:06 | RADIOLOGY REPORT (SQ) ---
CT angiogram chest with contrast on 08/21/2020 at 3:33 AM CLINICAL INDICATION: Shortness of breath TECHNIQUE: Multiple axial images are obtained throughout the chest following the administration of IV contrast. Computer generated 3D reconstructions/MIPS were performed. This exam was performed according to our departmental dose-optimization program, which includes automated exposure control, adjustment of the mA and/or kV according to patient size and/or use of iterative reconstruction technique. Total DLP is 612.95 mGy*cm. COMPARISON: 10/01/2019 FINDINGS: Mild bilateral gynecomastia is noted. There is fatty infiltration of the liver. Splenomegaly is noted with the spleen measuring at least 16.6 cm in greatest unem-ry-eoqi length. Limited visualized upper abdomen is otherwise unremarkable. There is no pleural or pericardial effusion. There is no thoracic adenopathy. There is no thoracic aortic aneurysm or dissection. There are no filling defects within the pulmonary arteries to suggest pulmonary embolus. The lungs are clear. No bony abnormality is noted. IMPRESSION: 1. No evidence of pulmonary embolus. 2. Fatty infiltration of the liver. 3. Splenomegaly. 4. Otherwise no acute abnormality.
[2020-08-21] MEDS ORDERED: MAGNESIUM SULFATE/D5W 2 GM/200 ML RTUPB IV ONE (05:05)
[2020-08-21] MEDS: MAGNESIUM SULFATE/D5W 1 GM/100 ML RTUPB IV SCH ×2 (05:14→05:34)
--- NOTE | 2020-08-21 07:55 | EKG REPORT ---
SEVERITY:- OTHERWISE NORMAL ECG - SINUS TACHYCARDIA BORDERLINE LEFT AXIS DEVIATION : Confirmed by: Misty Mcintosh 21-Aug-2020 07:54:17
[2020-08-21] MEDS ORDERED: FUROSEMIDE INJ/PF 20 MG/2 ML SDV IV ONE ×2 (08:12→08:13)
--- NOTE | 2020-08-21 08:33 | ER Document Report ---
ED General - General Chief Complaint: Leg Swelling Stated Complaint: SHORTNESS OF BREATH SWELLING OF LEGS AND ABDOMIN Time Seen by Provider: 08/20/20 23:24 Primary Care Provider: SÁNCHEZ VELEZ NP [Primary Care Provider] - Follow up as needed TRAVEL OUTSIDE OF THE [place] IN LAST 30 DAYS: No - HPI Notes: Chief complaint: Swelling all over, shortness of breath and intermittent chest pain History of present illness: 45-year-old male with history of obstructive sleep apnea syndrome, diabetes mellitus type 2 which is poorly controlled and chronic low back pain presenting now for progressively worsening generalized edema, intermittent shortness of breath and intermittent sharp chest pain. Patient was previously prescribed nocturnal CPAP but is no longer using this because "it was not strong enough" and he is waiting for his insurance company to certify some other type of the device. He is currently on hydrochlorothiazide. He has been on Lasix intermittently in the past but is not currently taking Lasix. He reports that his hemoglobin A1c was previously 14 and on recheck recently was 9 so he remains poorly controlled in terms of his diabetes. He says he has a history of congestive heart failure. I went back and reviewed prior records at this hospital from 2017 where he had an echocardiogram. He has mild diastolic dysfunction at that time but had a good ejection fraction. - Related Data Allergies/Adverse Reactions: losartan Allergy (Verified 08/21/20 08:23) niacin [Niacin] Allergy (Verified 08/21/20 08:23) Past Medical History - General Information source: Patient, Relative, [facility] Records - Social History Smoking Status: Former Smoker Frequency of alcohol use: None Drug Abuse: None Lives with: Family Family History: Reviewed & Not Pertinent - Past Medical History Cardiac Medical History: Reports: Hx Congestive Heart Failure, Hx Hypercholesterolemia, Hx Hypertension Denies: Hx DVT, Hx Pulmonary Embolism Pulmonary Medical History: Reports: Hx Sleep Apnea Neurological Medical History: Reports: Hx Migraine Endocrine Medical History: Reports: Hx Diabetes Mellitus Type 2 Renal/ Medical History: Denies: Hx Peritoneal Dialysis Musculoskeletal Medical History: Reports Hx Arthritis, Reports Hx Muscle W eakness, Reports Hx Musculoskeletal Deformity, Reports Hx Musculoskeletal Trauma Psychiatric Medical History: Reports: Hx Depression Traumatic Medical History: Reports: Hx Fractures Past Surgical History: Reports: Hx Abdominal Surgery - hernia, Hx Orthopedic Surgery - Immunizations Hx Diphtheria, Pertussis, Tetanus Vaccination: Yes Hx Pneumococcal Vaccination: 06/18/15 Review of Systems - Review of Systems Notes: Constitutional: Negative for fever. HENT: Negative for sore throat. Eyes: Negative for visual changes. Cardiovascular: As per HPI. Respiratory: As per HPI. Gastrointestinal: Negative for abdominal pain, vomiting or diarrhea. Genitourinary: Swelling of genitalia. Musculoskeletal: Chronic back pain. Skin: Negative for rash. Neurological: Negative for headaches, weakness or numbness. 10 point ROS negative except as marked above and in HPI. Physical Exam - Vital signs Vitals: Temp Pulse Resp BP Pulse Ox 98.1 F 107 H 22 H 174/91 H 96 08/20/20 23:00 08/20/20 23:00 08/20/20 23:00 08/20/20 23:00 08/20/20 23:00 - Notes Notes: GENERAL: Obese middle-age male with obvious anasarca. Awake alert and appropriately conversant. SKIN: Good turgor no rashes. HEAD: Normocephalic atraumatic. EYES: PERRLA. EOMI. Conjunctivae and sclerae clear. EARS: CANALS AND TMS CLEAR. NOSE: CLEAR. MOUTH: Moist mucosa. Good dentition. No stridor or edema. No drooling. NECK: Supple. No masses or thyromegaly. No adenopathy. Carotids 2+ without bruits. No JVD. BACK: Symmetrical without tenderness. CHEST: Respirations unlabored. Breath sounds clear and symmetrical. HEART: Regular rhythm. No murmur gallop or rub. ABDOMEN: Obese with probably some mild ascites. Soft nontender without masses, organomegaly or rebound. Bowel sounds normally active. No bruits. GENITALIA: Normal male. Diffusely edematous. EXTREMITIES: 3+ pretibial edema bilaterally. No calf tenderness. Cap refill less than 1.5 seconds. Dorsalis pedis and posterior tibial pulses 3+ and symmetrical. NEUROLOGICAL: GCS 15. Alert and oriented x3. Fluent speech. Cranial nerves II through XII intact. Sensorimotor and cerebellar normal. Normal tone. PSYCHIATRIC: Flat affect. Course - Re-evaluation Re-evalutation: 08/21/20 08:39 Patient is noted to be hypomagnesemic and we have given him some supplemental IV magnesium. His BNP level and troponin are both normal. No acute changes on EKG. We are going to get a second troponin level. D-dimer was minimally elevated. He got a chest CT which did not show any clots. I went back and reviewed his previous echocardiogram. He has mild diastolic dysfunction. I think his edema is likely to be primarily related to sleep apnea syndrome and noncompliance with his CPAP. I will give him some IV Lasix here. We will await his second troponin. Because of the high prevalence of Covid in the hospital I think it is not in his best interest to be admitted at this time and we will attempt to diurese him at home and getting back in touch with his primary care provider to try to do something immediately about the CPAP which she needs to be using. - Vital Signs Vital signs: Temp Pulse Resp BP Pulse Ox 98.6 F 107 H 13 164/92 H 95 08/21/20 07:10 08/20/20 23:00 08/21/20 12:01 08/21/20 12:01 08/21/20 12:01 - Laboratory Results Result Diagrams: 08/21/20 01:04 08/21/20 01:04 Laboratory Results Interpreted: 08/21/20 08/21/20 08/21/20 01:04 01:04 01:04 Hct 37.3 L MCHC 36.9 H RDW 15.9 H D-Dimer 0.68 H Sodium 131.4 L Potassium 5.1 H Chloride 93 L Glucose 331 H Magnesium 1.4 L Direct Bilirubin 0.5 H TSH Urine Glucose (UA) 08/21/20 08/21/20 01:04 09:30 Hct MCHC RDW D-Dimer Sodium Potassium Chloride Glucose Magnesium Direct Bilirubin TSH 7.13 H Urine Glucose (UA) >=500 H Critical Laboratory Results Reviewed: Yes Attending or Supervising Physician who Reviewed Labs: LAVELL ARRINGTON - Radiology Results Radiology Results Interpreted: 08/21/20 08:37 Chest X-Ray 08/21/20 00:02 IMPRESSION: No active disease. Chest/Abdomen CTA 08/21/20 01:55 IMPRESSION: 1. No evidence of pulmonary embolus. 2. Fatty infiltration of the liver. 3. Splenomegaly. 4. Otherwise no acute abnormality. Critical Radiology Results Reviewed: No Critical Results - EKG Interpretation by Me Additional EKG results interpreted by me: 08/21/20 08:37 Twelve-lead EKG reviewed by me contemporaneously: 2337 hrs. 08/20/2020 Indication for study: Dyspnea/chest pain Rhythm: Sinus tachycardia Rate: 101 Intervals: Normal QRS axis: -[address]/T wave changes: None Comparison with prior tracing: Unchanged since prior study of 10/01/2019 Interpretation: Left axis deviation. Sinus tachycardia. Discharge - Discharge Clinical Impression: Anasarca, Obstructive sleep apnea syndrome Condition: Stable Disposition: HOME, SELF-CARE Additional Instructions: Take prescribed medication as directed. Speak with your primary provider as soon as possible to restart CPAP/BiPAP You need to see your provider regarding improved control of your diabetes. You may return here as needed for new or worsening symptoms. Prescriptions: Furosemide [Lasix 40 mg Tablet] 40 mg PO QAM 30 Days #30 tablet Magnesium Oxide [Magnesium Oxide 400] 240 mg PO BID 5 Days #10 powd.pack Referrals: SÁNCHEZ VELEZ, TRANSMISSIONS SYSTEMS OPERATOR [Primary Care Provider] - Follow up as needed
[2020-08-21 09:42] LABS: APPEARANCE,URINE CLEAR; BILIRUBIN,URINE NEGATIVE (NEGATIVE); COLOR,URINE COLORLESS; GLUCOSE, URINE >=500 mg/dL (NEGATIVE); KETONES,URINE NEGATIVE (NEGATIVE); PROTEIN,URINE NEGATIVE (NEGATIVE); URINE SPECIFIC GRAVITY 1.008; UROBILINOGEN,URINE NEGATIVE mg/dL (<2.0)
[2020-08-21 15:46] VITALS: BP 178/95
== END 2020-08-21 12:30 | disposition home or self-care (01) ==
LOC: ER 22:42
DX: G47.33 Obstructive sleep apnea (adult) (pediatric) (principal); R60.1 Generalized edema; R06.02 Shortness of breath; I11.0 Hypertensive heart disease with heart failure; I50.9 Heart failure, unspecified; Z87.891 Personal history of nicotine dependence; Z88.8 Allergy status to other drugs, medicaments and biological substances; E11.9 Type 2 diabetes mellitus without complications
CPT/HCPCS: 93005; 99285; 96375; 96365; 36415; 83735; 84443; 85025; 80053; 81001; 84484; 85379; 83880; 71046; 71275; 93010; J1940; J3475